=== PATIENT | male | born 1940 | race Caucasian/White ===

== ENCOUNTER 2017-08-20 13:22 | Emergency (ER) | payer MEDICARE, OTHER ==
[~2017-08-20] VITALS: Ht 167.6 cm; Wt 67.2 kg
[2017-08-20 14:38] LABS: URINE BILIRUBIN - DIPSTICK NEGATIVE (NEGATIVE); URINE BLOOD DIPSTICK LARGE (NEGATIVE); URINE COLOR YELLOW; URINE GLUCOSE - DIPSTICK NEGATIVE (NEGATIVE); URINE KETONE NEGATIVE (NEGATIVE); URINE LEUK ESTERASE MODERATE (Negative); URINE NITRITE - DIPSTICK POSITIVE (Negative); URINE PH 5.5 (4.5-8.0); URINE PROTEIN - DIPSTICK 100 mg/dL (NEG-TRACE); URINE UROBILINOGEN - DIPSTICK 0.2 E.U./dL (0.2)
[2017-08-20 14:46] LABS: URINE RBC TNTC RBC/hpf (0-5)
[2017-08-20 14:47] LABS: URINE SQUAMOUS EPITHELIAL CELL FEW EPI/hpf (0-FEW)
[2017-08-20 14:49] LABS: URINE BACTERIA MODERATE hpf
[2017-08-20 14:50] LABS: URINE CLARITY TURBID
[2017-08-20] MEDS ORDERED: KEFLEX500 M1 PO (15:01)
[2017-08-20 15:08] VITALS: BP 140/74
== END 2017-08-20 15:10 | disposition home or self-care (01) ==
LOC: ED 13:22
DX: N39.0 Urinary tract infection, site not specified (principal); I10 Essential (primary) hypertension; K58.9 Irritable bowel syndrome, unspecified; K21.9 Gastro-esophageal reflux disease without esophagitis; E78.00 Pure hypercholesterolemia, unspecified; N40.1 Benign prostatic hyperplasia with lower urinary tract symptoms; R33.8 Other retention of urine

== ENCOUNTER 2017-10-03 15:10 | Emergency (ER) | payer MEDICARE ==
[~2017-10-03] VITALS: Ht 167.6 cm; Wt 72.2 kg
[~2017-10-03 15:10] MED LIST: KEFLEX500 M1 PO
[2017-10-03 15:43] LABS: HEMATOCRIT 43.1 % (39.0-50.0); HEMOGLOBIN 14.6 g/dl (14.0-18.0); IMMATURE GRANULOCYTES 0.2 % (0.0-1.0); MEAN CELL VOLUME 88.9 fL CALC (80.0-100.0); MEAN CORPUSCULAR HGB 30.1 pG CALC (26.0-32.0); MEAN CORPUSCULAR HGB CONC 33.9 g/L CALC (32.0-36.0); NEUT# 7.45 thou/uL (1.82-7.42); RED BLOOD COUNT 4.85 mill/uL (4.70-6.10); RED CELL DISTRI WIDTH 12.4 % (11.5-15.5)
[2017-10-03 15:50] LABS: ALBUMIN 4.4 g/dL (3.2-5.0); ALKALINE PHOSPHATASE 91 u/l (38-126); ANION GAP 17 (6-22 (CALC)); BILIRUBIN, TOTAL 0.4 mg/dL (0.0-1.4); BUN 9 mg/dL (8-23); BUN/CREATININE RATIO 15 (12-20 (CALC)); CARBON DIOXIDE 27 mmol/l (22-30); CHLORIDE 101 mmol/l (95-108); CREATININE 0.6 mg/dL (0.7-1.3); GFR > 60 ML/MIN (>=60 (CALC)); GFR FOR AFR.AMER. > 60 ML/MIN (>=60 (CALC)); LIPASE 73 u/l (23-300); POTASSIUM 3.9 mmol/l (3.5-5.1); SGOT/AST 25 u/l (19-48); SGPT/ALT 43 u/l (11-66); SODIUM 141 mmol/l (137-146); TOTAL PROTEIN 7.8 g/dL (6.3-8.2)
[2017-10-03 16:34] LABS: URINE BILIRUBIN - DIPSTICK NEGATIVE (NEGATIVE); URINE BLOOD DIPSTICK NEGATIVE (NEGATIVE); URINE COLOR YELLOW; URINE GLUCOSE - DIPSTICK 100 mg/dL (NEGATIVE); URINE KETONE NEGATIVE (NEGATIVE); URINE LEUK ESTERASE NEGATIVE (NEGATIVE); URINE NITRITE - DIPSTICK NEGATIVE (Negative); URINE PH 7.5 (4.5-8.0); URINE PROTEIN - DIPSTICK NEGATIVE (NEG-TRACE); URINE UROBILINOGEN - DIPSTICK 0.2 E.U./dL (0.2)
[2017-10-03 16:35] LABS: URINE CLARITY CLEAR
[2017-10-03 17:22] VITALS: BP 135/70
== END 2017-10-03 17:36 | disposition home or self-care (01) ==
LOC: ED 15:10
PROVIDERS: Family Medicine
DX: R06.02 Shortness of breath (principal); I10 Essential (primary) hypertension; K58.9 Irritable bowel syndrome, unspecified; K21.9 Gastro-esophageal reflux disease without esophagitis; E78.00 Pure hypercholesterolemia, unspecified; N40.0 Benign prostatic hyperplasia without lower urinary tract symptoms; Z85.820 Personal history of malignant melanoma of skin; R00.0 Tachycardia, unspecified
CPT/HCPCS: Q9967

== ENCOUNTER 2017-11-17 09:39 | Day surgery (SDC) | payer MEDICARE ==
[~2017-11-17] VITALS: Ht 167.6 cm; Wt 63.5 kg
[~2017-11-17 09:39] MED LIST changes: +AMITIZA8 MCG PO; +AREDS 2 PO; +CARVEDILOL25 MG PO; +COLACE100 MG PO; +IRBESARTAN150 M1 PO; +LINZESS145 MCG PO; +MIRALAX3350 N1 PO; +MIRTAZAPINE15 M1 PO; +NIFEDICAL XL60 MG PO; +OMEPRAZOLE20 MG PO; +SG ASA LOW81 M1 PO; +ZETIA10 MG PO
[2017-11-17 13:39] VITALS: BP 112/64
[2017-11-22] MEDS ORDERED: REFRESH OU (10:36)
[2017-11-22] MEDS ORDERED: MELATONIN PO (10:38)
[2017-11-22] MEDS ORDERED: MIRALAX3350 N1 PO (10:41)
[2017-11-22] MEDS ORDERED: XANAX0.5 MG PO (10:43)
== END 2017-11-17 13:53 | disposition home or self-care (01) ==
LOC: ENDO 09:39 → ORM 14:30
PROVIDERS: ATTEND Internal Medicine Gastroenterology
PROC: 0DB48ZX Excision of Esophagogastric Junction, Via Natural or Artificial Opening Endoscopic, Diagnostic (ICD-10-PCS; principal; 2017-11-17)
PROC: 0DB78ZX Excision of Stomach, Pylorus, Via Natural or Artificial Opening Endoscopic, Diagnostic (ICD-10-PCS; 2017-11-17)
PROC: 0D758ZZ Dilation of Esophagus, Via Natural or Artificial Opening Endoscopic (ICD-10-PCS; 2017-11-17)
DX: K21.9 Gastro-esophageal reflux disease without esophagitis (principal); K22.2 Esophageal obstruction; K29.50 Unspecified chronic gastritis without bleeding; K59.00 Constipation, unspecified; F32.9 Major depressive disorder, single episode, unspecified; I10 Essential (primary) hypertension; Z86.010 Personal history of colon polyps

== ENCOUNTER 2017-12-31 17:10 | Emergency (ER) | payer MEDICARE ==
[~2017-12-31] VITALS: Ht 167.6 cm; Wt 65.0 kg
[~2017-12-31 17:10] MED LIST changes: +BENADRY1 PO; +MAGNESIUM 250 M1 TAB PO; +MELATONIN PO; +MELATONIN10 M1 PO; +REFRESH OU; +SUPER VITAMIN B COMP PO; +XANAX0.5 MG PO; +ZOLOFT50 MG PO
[2017-12-31 18:08] LABS: HEMATOCRIT 45.1 % (39.0-50.0); HEMOGLOBIN 15.1 g/dl (14.0-18.0); IMMATURE GRANULOCYTES 0.2 % (0.0-5.0); MEAN CELL VOLUME 89.3 fL CALC (80.0-100.0); MEAN CORPUSCULAR HGB 29.9 pG CALC (26.0-32.0); MEAN CORPUSCULAR HGB CONC 33.5 g/L CALC (32.0-36.0); NEUT# 5.28 thou/uL (1.82-7.42); RED BLOOD COUNT 5.05 mill/uL (4.70-6.10); RED CELL DISTRI WIDTH 12.9 % (11.5-15.5)
[2017-12-31 18:33] LABS: ALBUMIN 4.2 g/dL (3.2-5.0); ALKALINE PHOSPHATASE 84 u/l (38-126); ANION GAP 15 (6-22 (CALC)); BILIRUBIN, TOTAL 0.3 mg/dL (0.0-1.4); BUN 11 mg/dL (8-23); BUN/CREATININE RATIO 18 (12-20 (CALC)); CARBON DIOXIDE 27 mmol/l (22-30); CHLORIDE 104 mmol/l (95-108); CREATININE 0.6 mg/dL (0.7-1.3); GFR > 60 ML/MIN (>=60 (CALC)); GFR FOR AFR.AMER. > 60 ML/MIN (>=60 (CALC)); POTASSIUM 3.6 mmol/l (3.5-5.1); SGOT/AST 28 u/l (19-48); SODIUM 142 mmol/l (137-146)
[2017-12-31 19:36] LABS: URINE BILIRUBIN - DIPSTICK NEGATIVE (NEGATIVE); URINE BLOOD DIPSTICK NEGATIVE (NEGATIVE); URINE CLARITY CLEAR; URINE COLOR YELLOW; URINE GLUCOSE - DIPSTICK NEGATIVE (NEGATIVE); URINE KETONE NEGATIVE (NEGATIVE); URINE LEUK ESTERASE NEGATIVE (NEGATIVE); URINE NITRITE - DIPSTICK NEGATIVE (Negative); URINE PROTEIN - DIPSTICK NEGATIVE (NEG-TRACE); URINE UROBILINOGEN - DIPSTICK 0.2 E.U./dL (0.2)
[2017-12-31 19:49] VITALS: BP 138/71
== END 2017-12-31 19:57 | disposition home or self-care (01) ==
LOC: ED 17:10
PROVIDERS: Emergency Medicine
DX: K59.00 Constipation, unspecified (principal); I10 Essential (primary) hypertension; R82.90 Unspecified abnormal findings in urine

== ENCOUNTER 2018-01-31 11:59 | Emergency (ER) | payer MEDICARE ==
[~2018-01-31] VITALS: Ht 167.6 cm; Wt 65.0 kg
[~2018-01-31 11:59] MED LIST changes: +ZOFRAN4 M1 PO
[2018-01-31 12:34] LABS: HEMOGLOBIN 15.2 g/dl (14.0-18.0); IMMATURE GRANULOCYTES 0.2 % (0.0-5.0); MEAN CELL VOLUME 89.8 fL CALC (80.0-100.0); MEAN CORPUSCULAR HGB 30.3 pG CALC (26.0-32.0); MEAN CORPUSCULAR HGB CONC 33.8 g/L CALC (32.0-36.0); NEUT# 6.36 thou/uL (1.82-7.42); RED BLOOD COUNT 5.01 mill/uL (4.70-6.10); RED CELL DISTRI WIDTH 12.7 % (11.5-15.5)
[2018-01-31 12:47] LABS: ALBUMIN 4.3 g/dL (3.2-5.0); ALKALINE PHOSPHATASE 76 u/l (38-126); ANION GAP 14 (6-22 (CALC)); BILIRUBIN, TOTAL 0.4 mg/dL (0.0-1.4); BUN 13 mg/dL (8-23); BUN/CREATININE RATIO 20 (12-20 (CALC)); CARBON DIOXIDE 27 mmol/l (22-30); CHLORIDE 105 mmol/l (95-108); CREATININE 0.6 mg/dL (0.7-1.3); GFR > 60 ML/MIN (>=60 (CALC)); GFR FOR AFR.AMER. > 60 ML/MIN (>=60 (CALC)); POTASSIUM 4.1 mmol/l (3.5-5.1); SGOT/AST 35 u/l (19-48); SODIUM 141 mmol/l (137-146); TOTAL PROTEIN 7.4 g/dL (6.3-8.2)
[2018-01-31 15:28] VITALS: BP 148/70
[2018-02-05] MEDS ORDERED: LINZESS72 MCG PO (12:28)
== END 2018-01-31 15:38 | disposition home or self-care (01) ==
LOC: ED 11:59
PROVIDERS: Emergency Medicine
DX: F41.9 Anxiety disorder, unspecified (principal); R07.89 Other chest pain; K59.00 Constipation, unspecified; R11.0 Nausea; I10 Essential (primary) hypertension; E78.00 Pure hypercholesterolemia, unspecified; K21.9 Gastro-esophageal reflux disease without esophagitis; Y92.238 Other place in hospital as the place of occurrence of the external cause

== ENCOUNTER 2018-03-15 11:44 | Observation (INO) | payer MEDICARE ==
[~2018-03-15] VITALS: Ht 167.6 cm; Wt 70.0 kg
[~2018-03-15 11:44] MED LIST changes: +LINZESS72 MCG PO
[2018-03-15 13:42] LABS: HEMATOCRIT 43.7 % (39.0-50.0); HEMOGLOBIN 15.2 g/dl (14.0-18.0); IMMATURE GRANULOCYTES 0.2 % (0.0-5.0); MEAN CELL VOLUME 88.1 fL CALC (80.0-100.0); MEAN CORPUSCULAR HGB 30.6 pG CALC (26.0-32.0); MEAN CORPUSCULAR HGB CONC 34.8 g/L CALC (32.0-36.0); NEUT# 6.39 thou/uL (1.82-7.42); RED BLOOD COUNT 4.96 mill/uL (4.70-6.10); RED CELL DISTRI WIDTH 12.4 % (11.5-15.5)
[2018-03-15 13:55] LABS: ANION GAP 14 (6-22 (CALC)); BUN 13 mg/dL (8-23); BUN/CREATININE RATIO 23 (12-20 (CALC)); CARBON DIOXIDE 25 mmol/l (22-30); CHLORIDE 105 mmol/l (95-108); CREATININE 0.6 mg/dL (0.7-1.3); GFR > 60 ML/MIN (>=60 (CALC)); GFR FOR AFR.AMER. > 60 ML/MIN (>=60 (CALC)); POTASSIUM 3.8 mmol/l (3.5-5.1); SODIUM 141 mmol/l (137-146)
[2018-03-15 17:54] VITALS: BP 173/85
[2018-03-15 19:00] VITALS: BP 160/82
[2018-03-15 19:05] VITALS: BP 151/53
[2018-03-15 20:00] VITALS: BP 149/84
[2018-03-15 21:42] LABS: URINE BILIRUBIN - DIPSTICK NEGATIVE (NEGATIVE); URINE BLOOD DIPSTICK NEGATIVE (NEGATIVE); URINE COLOR YELLOW; URINE GLUCOSE - DIPSTICK NEGATIVE (NEGATIVE); URINE KETONE 40 mg/dL (NEGATIVE); URINE LEUK ESTERASE NEGATIVE (NEGATIVE); URINE NITRITE - DIPSTICK NEGATIVE (Negative); URINE PH 7.5 (4.5-8.0); URINE PROTEIN - DIPSTICK TRACE mg/dL (NEG-TRACE); URINE UROBILINOGEN - DIPSTICK 0.2 E.U./dL (0.2)
[2018-03-15 23:56] VITALS: BP 166/83
[2018-03-16 04:38] VITALS: BP 132/71
[2018-03-16 05:46] LABS: HEMATOCRIT 41.6 % (39.0-50.0); HEMOGLOBIN 14.3 g/dl (14.0-18.0); IMMATURE GRANULOCYTES 0.2 % (0.0-5.0); MEAN CELL VOLUME 90.2 fL CALC (80.0-100.0); MEAN CORPUSCULAR HGB CONC 34.4 g/L CALC (32.0-36.0); NEUT# 4.13 thou/uL (1.82-7.42); RED BLOOD COUNT 4.61 mill/uL (4.70-6.10); RED CELL DISTRI WIDTH 12.5 % (11.5-15.5)
[2018-03-16 05:55] LABS: ALBUMIN 3.8 g/dL (3.2-5.0); ALKALINE PHOSPHATASE 66 u/l (38-126); ANION GAP 14 (6-22 (CALC)); BILIRUBIN, TOTAL 0.8 mg/dL (0.0-1.4); BUN 18 mg/dL (8-23); BUN/CREATININE RATIO 26 (12-20 (CALC)); CARBON DIOXIDE 26 mmol/l (22-30); CHLORIDE 105 mmol/l (95-108); CREATININE 0.7 mg/dL (0.7-1.3); GFR > 60 ML/MIN (>=60 (CALC)); GFR FOR AFR.AMER. > 60 ML/MIN (>=60 (CALC)); MAGNESIUM 2.3 mg/dL (1.6-2.3); POTASSIUM 3.9 mmol/l (3.5-5.1); SGOT/AST 25 u/l (19-48); SODIUM 142 mmol/l (137-146); TOTAL PROTEIN 6.3 g/dL (6.3-8.2)
[2018-03-16 08:14] VITALS: BP 128/51
[2018-03-16 11:22] VITALS: BP 136/74
[2018-03-16] MEDS ORDERED: ZOFRAN4 MG PO (14:21)
== END 2018-03-16 15:22 | disposition home or self-care (01) ==
LOC: ED 11:44 → ED-I 14:57 → ED 15:04 → MS2 15:05
PROVIDERS: Family Medicine; ADMIT Internal Medicine Nephrology; ATTEND Internal Medicine Nephrology
DX: F41.0 Panic disorder [episodic paroxysmal anxiety] (principal); T46.5X6A Underdosing of other antihypertensive drugs, initial encounter; I10 Essential (primary) hypertension; K21.9 Gastro-esophageal reflux disease without esophagitis; K58.9 Irritable bowel syndrome, unspecified; E78.5 Hyperlipidemia, unspecified; N40.0 Benign prostatic hyperplasia without lower urinary tract symptoms; Z91.128 Patient's intentional underdosing of medication regimen for other reason; Z85.820 Personal history of malignant melanoma of skin; R07.9 Chest pain, unspecified
CPT/HCPCS: J1650

== ENCOUNTER 2018-05-14 15:47 | Emergency (ER) | payer MEDICARE ==
[~2018-05-14] VITALS: Ht 167.6 cm; Wt 60.0 kg
[~2018-05-14 15:47] MED LIST changes: +ZOFRAN4 MG PO
[2018-05-14 16:50] LABS: HEMATOCRIT 41.5 % (39.0-50.0); IMMATURE GRANULOCYTES 0.1 % (0.0-5.0); MEAN CELL VOLUME 92.4 fL CALC (80.0-100.0); MEAN CORPUSCULAR HGB 31.2 pG CALC (26.0-32.0); MEAN CORPUSCULAR HGB CONC 33.7 g/L CALC (32.0-36.0); NEUT# 4.89 thou/uL (1.82-7.42); RED BLOOD COUNT 4.49 mill/uL (4.70-6.10); RED CELL DISTRI WIDTH 12.9 % (11.5-15.5)
[2018-05-14 16:52] LABS: GFR > 60 ML/MIN (>=60 (CALC)); GFR FOR AFR.AMER. > 60 ML/MIN (>=60 (CALC))
[2018-05-14 17:04] LABS: ANION GAP 14 (6-22 (CALC)); BUN 14 mg/dL (8-23); BUN/CREATININE RATIO 24 (12-20 (CALC)); CARBON DIOXIDE 26 mmol/l (22-30); CHLORIDE 105 mmol/l (95-108); CREATININE 0.6 mg/dL (0.7-1.3); GFR > 60 ML/MIN (>=60 (CALC)); GFR FOR AFR.AMER. > 60 ML/MIN (>=60 (CALC)); POTASSIUM 3.5 mmol/l (3.5-5.1); SODIUM 142 mmol/l (137-146)
[2018-05-14 18:52] VITALS: BP 126/60
== END 2018-05-14 18:52 | disposition home or self-care (01) ==
LOC: ED 15:47
PROVIDERS: Family Medicine
DX: R00.2 Palpitations (principal); I10 Essential (primary) hypertension; K58.9 Irritable bowel syndrome, unspecified; E78.00 Pure hypercholesterolemia, unspecified; N40.0 Benign prostatic hyperplasia without lower urinary tract symptoms; K21.9 Gastro-esophageal reflux disease without esophagitis; F41.9 Anxiety disorder, unspecified; R06.02 Shortness of breath
CPT/HCPCS: Q9967

== ENCOUNTER 2018-06-07 11:25 | Emergency (ER) | payer MEDICARE ==
[~2018-06-07] VITALS: Ht 167.6 cm; Wt 65.0 kg
[2018-06-07 12:15] LABS: HEMATOCRIT 44.6 % (39.0-50.0); HEMOGLOBIN 15.2 g/dl (14.0-18.0); IMMATURE GRANULOCYTES 0.1 % (0.0-5.0); MEAN CELL VOLUME 89.9 fL CALC (80.0-100.0); MEAN CORPUSCULAR HGB 30.6 pG CALC (26.0-32.0); MEAN CORPUSCULAR HGB CONC 34.1 g/L CALC (32.0-36.0); NEUT# 6.41 thou/uL (1.82-7.42); RED BLOOD COUNT 4.96 mill/uL (4.70-6.10); RED CELL DISTRI WIDTH 12.4 % (11.5-15.5)
[2018-06-07 12:29] LABS: ALKALINE PHOSPHATASE 77 u/l (38-126); ANION GAP 15 (6-22 (CALC)); BILIRUBIN, TOTAL 0.6 mg/dL (0.0-1.4); BUN 16 mg/dL (8-23); BUN/CREATININE RATIO 24 (12-20 (CALC)); CARBON DIOXIDE 25 mmol/l (22-30); CHLORIDE 103 mmol/l (95-108); CREATININE 0.7 mg/dL (0.7-1.3); GFR > 60 ML/MIN (>=60 (CALC)); GFR FOR AFR.AMER. > 60 ML/MIN (>=60 (CALC)); LIPASE 69 u/l (23-300); POTASSIUM 3.7 mmol/l (3.5-5.1); SGOT/AST 26 u/l (19-48); SODIUM 140 mmol/l (137-146); TOTAL PROTEIN 7.2 g/dL (6.3-8.2)
[2018-06-07 12:32] LABS: ALBUMIN 4.6 g/dL (3.2-5.0)
[2018-06-07 15:49] LABS: URINE BILIRUBIN - DIPSTICK NEGATIVE (NEGATIVE); URINE BLOOD DIPSTICK NEGATIVE (NEGATIVE); URINE COLOR YELLOW; URINE GLUCOSE - DIPSTICK NEGATIVE (NEGATIVE); URINE KETONE 15 mg/dL (NEGATIVE); URINE LEUK ESTERASE NEGATIVE (NEGATIVE); URINE NITRITE - DIPSTICK NEGATIVE (Negative); URINE PROTEIN - DIPSTICK NEGATIVE (NEG-TRACE); URINE UROBILINOGEN - DIPSTICK 0.2 E.U./dL (0.2)
[2018-06-07 17:10] VITALS: BP 155/73
== END 2018-06-07 17:16 | disposition home or self-care (01) ==
LOC: ED 11:25
PROVIDERS: Family Medicine
DX: R10.13 Epigastric pain (principal); R10.816 Epigastric abdominal tenderness; R05 Cough; I10 Essential (primary) hypertension; K58.9 Irritable bowel syndrome, unspecified; K21.9 Gastro-esophageal reflux disease without esophagitis; N40.0 Benign prostatic hyperplasia without lower urinary tract symptoms

== ENCOUNTER 2018-06-22 14:54 | Emergency (ER) | payer MEDICARE ==
[~2018-06-22] VITALS: Ht 167.6 cm; Wt 58.6 kg
[2018-06-22 15:55] LABS: HEMATOCRIT 43.6 % (39.0-50.0); HEMOGLOBIN 14.8 g/dl (14.0-18.0); IMMATURE GRANULOCYTES 0.2 % (0.0-5.0); MEAN CELL VOLUME 89.2 fL CALC (80.0-100.0); MEAN CORPUSCULAR HGB 30.3 pG CALC (26.0-32.0); MEAN CORPUSCULAR HGB CONC 33.9 g/L CALC (32.0-36.0); RED BLOOD COUNT 4.89 mill/uL (4.70-6.10); RED CELL DISTRI WIDTH 12.4 % (11.5-15.5)
[2018-06-22 16:16] LABS: ALBUMIN 4.2 g/dL (3.2-5.0); ALKALINE PHOSPHATASE 68 u/l (38-126); ANION GAP 14 (6-22 (CALC)); BILIRUBIN, TOTAL 0.5 mg/dL (0.0-1.4); BUN 24 mg/dL (8-23); BUN/CREATININE RATIO 35 (12-20 (CALC)); CARBON DIOXIDE 27 mmol/l (22-30); CHLORIDE 103 mmol/l (95-108); CREATININE 0.7 mg/dL (0.7-1.3); GFR > 60 ML/MIN (>=60 (CALC)); GFR FOR AFR.AMER. > 60 ML/MIN (>=60 (CALC)); POTASSIUM 3.4 mmol/l (3.5-5.1); SGOT/AST 22 u/l (19-48); SODIUM 140 mmol/l (137-146); TOTAL PROTEIN 6.8 g/dL (6.3-8.2)
[2018-06-22 17:10] LABS: TSH, 3RD GENERATION 0.96 uIU/mL (0.47 - 4.68)
[2018-06-22 19:01] VITALS: BP 137/66
== END 2018-06-22 19:05 | disposition home or self-care (01) ==
LOC: ED 14:54
PROVIDERS: Emergency Medicine
DX: R34 Anuria and oliguria (principal); I10 Essential (primary) hypertension

== ENCOUNTER 2018-08-21 09:22 | Emergency (ER) | payer MEDICARE ==
[~2018-08-21] VITALS: Ht 167.6 cm; Wt 54.0 kg
[2018-08-21 10:36] LABS: HEMATOCRIT 45.8 % (39.0-50.0); HEMOGLOBIN 15.1 g/dl (14.0-18.0); IMMATURE GRANULOCYTES 0.3 % (0.0-5.0); MEAN CELL VOLUME 90.3 fL CALC (80.0-100.0); MEAN CORPUSCULAR HGB 29.8 pG CALC (26.0-32.0); NEUT# 7.5 thou/uL (1.82-7.42); RED BLOOD COUNT 5.07 mill/uL (4.70-6.10); RED CELL DISTRI WIDTH 12.4 % (11.5-15.5)
[2018-08-21 10:50] LABS: URINE BILIRUBIN - DIPSTICK NEGATIVE (NEGATIVE); URINE BLOOD DIPSTICK NEGATIVE (NEGATIVE); URINE COLOR YELLOW; URINE GLUCOSE - DIPSTICK NEGATIVE (NEGATIVE); URINE KETONE NEGATIVE (NEGATIVE); URINE LEUK ESTERASE NEGATIVE (NEGATIVE); URINE NITRITE - DIPSTICK NEGATIVE (Negative); URINE PROTEIN - DIPSTICK NEGATIVE (NEG-TRACE); URINE UROBILINOGEN - DIPSTICK 0.2 E.U./dL (0.2)
[2018-08-21 10:52] LABS: ALBUMIN 4.3 g/dL (3.2-5.0); ALKALINE PHOSPHATASE 77 u/l (38-126); ANION GAP 14 (6-22 (CALC)); BILIRUBIN, TOTAL 0.5 mg/dL (0.0-1.4); BUN 9 mg/dL (8-23); BUN/CREATININE RATIO 15 (12-20 (CALC)); CARBON DIOXIDE 28 mmol/l (22-30); CHLORIDE 104 mmol/l (95-108); CREATININE 0.6 mg/dL (0.7-1.3); GFR > 60 ML/MIN (>=60 (CALC)); GFR FOR AFR.AMER. > 60 ML/MIN (>=60 (CALC)); LIPASE 71 u/l (23-300); POTASSIUM 4.4 mmol/l (3.5-5.1); SGOT/AST 28 u/l (19-48); SODIUM 142 mmol/l (137-146); TOTAL PROTEIN 6.8 g/dL (6.3-8.2)
[2018-08-21] MEDS ORDERED: DULCOLAX10 MG RE (12:37)
[2018-08-21 13:35] VITALS: BP 173/95
== END 2018-08-21 13:41 | disposition home or self-care (01) ==
LOC: ED 09:22
PROVIDERS: Emergency Medicine
DX: K59.00 Constipation, unspecified (principal); K58.9 Irritable bowel syndrome, unspecified; I10 Essential (primary) hypertension; R11.2 Nausea with vomiting, unspecified; R82.90 Unspecified abnormal findings in urine
CPT/HCPCS: Q9967

== ENCOUNTER 2018-12-24 11:17 | Emergency (ER) | payer MEDICARE ==
[~2018-12-24] VITALS: Ht 167.6 cm; Wt 52.3 kg
[~2018-12-24 11:17] MED LIST changes: +DULCOLAX10 MG RE
[2018-12-24] MEDS ORDERED: LINZESS290 MCG (11:34)
[2018-12-24] MEDS ORDERED: ASPIRIN EC LOW81 MG PO (11:35)
[2018-12-24] MEDS ORDERED: OMEPRAZOLE10 MG PO (11:35)
[2018-12-24] MEDS ORDERED: IBERSARTAN PO (11:36)
[2018-12-24] MEDS ORDERED: CARVEDILOL25 MG PO (11:36)
[2018-12-24] MEDS ORDERED: SUCRALFATE1 GM PO (11:37)
[2018-12-24] MEDS ORDERED: ALPRAZOLAM1 MG PO (11:38)
[2018-12-24] MEDS ORDERED: ZETIA10 MG PO (11:38)
[2018-12-24] MEDS ORDERED: MIRTAZAPINE15 MG PO (11:39)
[2018-12-24] MEDS ORDERED: CYMBALTA60 MG PO (11:39)
[2018-12-24] MEDS ORDERED: STOOL SOFTE1 PO (11:39)
[2018-12-24] MEDS ORDERED: MILK OF MAG30 ML/UDC PO (11:40)
[2018-12-24] MEDS ORDERED: NIFEDICAL XL60 MG PO (11:40)
[2018-12-24 11:56] LABS: HEMOGLOBIN 13.9 g/dl (14.0-18.0); IMMATURE GRANULOCYTES 0.4 % (0.0-5.0); MEAN CELL VOLUME 88.8 fL CALC (80.0-100.0); MEAN CORPUSCULAR HGB 29.4 pG CALC (26.0-32.0); MEAN CORPUSCULAR HGB CONC 33.1 g/L CALC (32.0-36.0); NEUT# 3.62 thou/uL (1.82-7.42); RED BLOOD COUNT 4.73 mill/uL (4.70-6.10); RED CELL DISTRI WIDTH 12.5 % (11.5-15.5)
[2018-12-24 12:55] LABS: ALKALINE PHOSPHATASE 80 u/l (38-126); ANION GAP 13 (6-22 (CALC)); BILIRUBIN, TOTAL 0.4 mg/dL (0.0-1.4); BUN 15 mg/dL (8-23); BUN/CREATININE RATIO 25 (12-20 (CALC)); CARBON DIOXIDE 28 mmol/l (22-30); CHLORIDE 105 mmol/l (95-108); CREATININE 0.6 mg/dL (0.7-1.3); GFR > 60 ML/MIN (>=60 (CALC)); GFR FOR AFR.AMER. > 60 ML/MIN (>=60 (CALC)); POTASSIUM 3.8 mmol/l (3.5-5.1); SGOT/AST 25 u/l (19-48); SODIUM 142 mmol/l (137-146); TOTAL PROTEIN 6.7 g/dL (6.3-8.2)
[2018-12-24 13:07] LABS: URINE BILIRUBIN - DIPSTICK NEGATIVE (NEGATIVE); URINE BLOOD DIPSTICK NEGATIVE (NEGATIVE); URINE COLOR YELLOW; URINE GLUCOSE - DIPSTICK NEGATIVE (NEGATIVE); URINE KETONE NEGATIVE (NEGATIVE); URINE LEUK ESTERASE NEGATIVE (NEGATIVE); URINE NITRITE - DIPSTICK NEGATIVE (Negative); URINE PROTEIN - DIPSTICK NEGATIVE (NEG-TRACE); URINE SPECIFIC GRAVITY 1.015; URINE UROBILINOGEN - DIPSTICK 0.2 E.U./dL (0.2)
[2018-12-24 14:20] VITALS: BP 159/85
== END 2018-12-24 14:20 | disposition home or self-care (01) ==
LOC: ED 11:17
PROVIDERS: Family Medicine
DX: K62.89 Other specified diseases of anus and rectum (principal); R10.84 Generalized abdominal pain; I10 Essential (primary) hypertension

== ENCOUNTER 2020-06-29 | Inpatient (IN) | payer MEDICARE ==
[2020-06-29] VITALS (12 sets, daily range): BP systolic 139–180; BP diastolic 62–102
[~2020-06-29] MED LIST changes: +ALPRAZOLAM1 MG PO; +ASPIRIN EC LOW81 MG PO; +CYMBALTA60 MG PO; +IBERSARTAN PO; +LINZESS290 MCG; +MILK OF MAG30 ML/UDC PO; +MIRTAZAPINE15 MG PO; +OMEPRAZOLE10 MG PO; +STOOL SOFTE1 PO; +SUCRALFATE1 GM PO
--- NOTE | 2020-06-29 05:40 | NUR ---
PT TO ROOM 13 FOR TRIAGE AT BEDSIDE....VIA W/C.
--- NOTE | 2020-06-29 06:09 | NUR ---
PT RESTING ON STRECTHER, SPOUSE IS TALKING ANXIOUSLY ABOUT THEIR HOME AND FORMALDEHYDE POISONING AND THAT THEY HAVE HAD TO MOVE OUT AND HIRE A MAKE UP MAN TO [place] SOMEONE BECAUSE THEIR INSURANCE SAYS THAT ISN'T COVERED, ETC.. ATTEMPTS TO REDIRECT SPOUSE TO SITUATION AT HAND LASTS FOR SHORT PERIODS OF TIME, PT RESTING ON STRETCHER WITH NO S/S OF DISTRESS, SAT 99-100% ON ROOM AIR, LUNGS CLEAR DIMINSHED, SPOUSE STATES HE COULD BARELY CATCH HIS BREATH AT HOME LIKE HE HAD PNEUMONIA OR SOMETHING, ALSO STATES THAT HE HAD HIS COVID VACCINE ON MONDAY. NO S/S OF DISTRESS NOTED NO COUGH NOTED. CALL CAMERON WITHIN REACH, WILL CONTINUE TO MONITOR.
[2020-06-29 06:19] LABS: HEMATOCRIT 39.3 % (39.0-50.0); HEMOGLOBIN 12.7 g/dl (14.0-18.0); IMMATURE GRANULOCYTES 0.3 % (0.0-5.0); MEAN CORPUSCULAR HGB 30.8 pG CALC (26.0-32.0); MEAN CORPUSCULAR HGB CONC 32.3 g/dL CAL (32.0-36.0); NEUT# 3.62 thou/uL (1.82-7.42); RED BLOOD COUNT 4.13 mill/uL (4.70-6.10); RED CELL DISTRI WIDTH 11.9 % (11.5-15.5)
[2020-06-29 06:20] LABS: MEAN CELL VOLUME 95.2 fL CALC (80.0-100.0)
[2020-06-29 06:33] LABS: ALBUMIN 3.7 g/dL (3.2-5.0); ALKALINE PHOSPHATASE 74 u/l (38-126); ANION GAP 10 (6-22 (CALC)); BILIRUBIN, TOTAL 0.6 mg/dL (0.0-1.4); BUN 14 mg/dL (8-23); BUN/CREATININE RATIO 17 (12-20 (CALC)); CARBON DIOXIDE 30 mmol/l (22-30); CHLORIDE 104 mmol/l (95-108); CREATININE 0.9 mg/dL (0.7-1.3); GFR > 60 ML/MIN (>=60 (CALC)); GFR FOR AFR.AMER. > 60 ML/MIN (>=60 (CALC)); POTASSIUM 3.7 mmol/l (3.5-5.1); SGOT/AST 19 u/l (19-48); SODIUM 141 mmol/l (137-146); TOTAL PROTEIN 6.6 g/dL (6.3-8.2)
--- NOTE | 2020-06-29 06:36 | NUR ---
PT AWARE OF NEED FOR URINE SPECIMEN, PO FLUIDS PROVIDED AND URINAL WITHIN REACH
[2020-06-29] MEDS ORDERED: OLANZAPINE10 MG PO (06:47)
[2020-06-29] MEDS ORDERED: BUPROPION150 M4 PO (06:56)
[2020-06-29] MEDS ORDERED: IRBESARTAN150 M1 PO (07:01)
[2020-06-29] MEDS ORDERED: VERAPAMIL HCL240 M2 PO (07:03)
[2020-06-29] MEDS ORDERED: ATIVAN1 MG PO (07:03)
[2020-06-29] MEDS ORDERED: TAMSULOSIN HCL0.4 MG PO (07:04)
--- NOTE | 2020-06-29 07:05 | NUR ---
RECIEVED REPORT FROM ONEAL
--- NOTE | 2020-06-29 08:10 | NUR ---
PT RECONNECTED TO [employer], DENIES ANY NEEDS AT THIS TIME
[2020-06-29 08:35] LABS: ACT PARTIAL THROMBO TIME 23.6 SECONDS (20.0-32.5); PROTHROMBIN TIME 10.1 SECONDS (9.0-12.5)
--- NOTE | 2020-06-29 08:52 | NUR ---
STARTED HEPARIN INFUSING, EDU ON TREATMENT AND THE REASONING WHY GIVEN. PT REPOSITIONED IN BED AND URINAL, CALL LIGHT WITHIN REACH. AT BEDSIDE HAD QUESTIONS AND ALL ANSWERED. WILL CONTINUE TO MONITOR
--- NOTE | 2020-06-29 10:06 | NUR ---
GAVE REPORT TO MARYELLEN, SHE REQUESTED 10 MIN OF WAIT UNTIL PT TAKEN UPSTAIRS. REQUEST GRANTED. PT CONTINUES TO BE COMFORTABLE, STABLE AND HEPARIN DRIP INFUSING INTO PATENT IV.
--- NOTE | 2020-06-29 10:21 | NUR ---
male pt received to ICU bed 4 via bed accompanied by Felicity Bustos RN in stable condition; pt able to slide self over in bed; admission assessment completed at this time; pt alert and oriented; admits to headache rating 3/10; will medicate; no n/v noted; resp even and unlabored; lungs clear; skin color wnl; ra; hr reg; strong pulses; no edema noted; sr on monitor; abd soft with bs present; no bm for 2 and 1/2 days per pt; pt states this is his normal; pt admits to taking colace and miralax at home; pt admits to burning and pain with urine; pt admits to inability to urinate when in ER; urinal placed at bedside; #20 to rac patent with heparin gtt infusing at 1000 units/hr; no redness or edema noted at site; plan of care/meds explained; call light within reach; will continue to monitor
--- NOTE | 2020-06-29 10:25 | NUR ---
PT TRANSPORTED TO ICU STABLE AND IN NO DISTRESS. CARE ASSUMED TO MARYELLEN. Admission Note Report Given to: MARYELLEN Transported by: Wheelchair X Stretcher Transported with: X Nurse Transporter X Patent IV O2 X Stone Planer Location: X ICU MS2
--- NOTE | 2020-06-29 12:00 | NUR ---
pt awake in bed; soft meal provided; pureed offered and declined; iv intact and patent; heparin gtt at 1000 units/hr; pt offers no complaints; bp elevted; LIANA Nash notified; call light within reach; will continue to monitor
--- NOTE | 2020-06-29 12:05 | NUR ---
Patient is screened for intervention and no needs areidentified at this time
[2020-06-29 12:22] LABS: URINE BILIRUBIN - DIPSTICK NEGATIVE (NEGATIVE); URINE BLOOD DIPSTICK NEGATIVE (NEGATIVE); URINE COLOR YELLOW; URINE GLUCOSE - DIPSTICK NEGATIVE (NEGATIVE); URINE KETONE NEGATIVE (NEGATIVE); URINE LEUK ESTERASE NEGATIVE (NEGATIVE); URINE PROTEIN - DIPSTICK NEGATIVE (NEG-TRACE); URINE SPECIFIC GRAVITY <=1.005; URINE UROBILINOGEN - DIPSTICK 0.2 E.U./dL (0.2)
[2020-06-29 12:24] LABS: URINE NITRITE - DIPSTICK NEGATIVE (Negative)
--- NOTE | 2020-06-29 12:52 | NUR ---
pt denies taking any home meds today; Anna Nash APRN informed of no meds/ elevated bp/ and no bm the 2.5 days; med rec/ orders to be placed
--- NOTE | 2020-06-29 13:42 | NUR ---
#20 LFA INITIATED BY THIS DIRECTOR OF CLINICAL SERVICES X1 ATTEMPT. HEALTHY AND PATENT. PT TOLERATED WELL.
--- NOTE | 2020-06-29 14:15 | NUR ---
pt awake in bed; no relief from tylenol; DIVISION CHIEF will be notified; sr on monitor; iv intact and patent; heparin gtt continues; call light within reach; will continue to monitor
--- NOTE | 2020-06-29 15:16 | NUR ---
Pt screened by ST on 06/29/20. GEODETIC SURVEYOR TECHNOLOGIST recommends evluation based on PMH and current symptoms if medical agrees.
--- NOTE | 2020-06-29 15:38 | NUR ---
Anna Nash APRN present at bedside to assess pt and discuss plan of care
--- NOTE | 2020-06-29 15:52 | NUR ---
D KATIE GAINES NOTIFIED OF CRITICAL PTT RESULT OF 122.5.
--- NOTE | 2020-06-29 15:54 | NUR ---
heparin gtt placed on hold, ptt 122.5
--- NOTE | 2020-06-29 16:00 | NUR ---
pt awake in bed; no apparent distress noted; pt continues with complaints of headache; iv intact and patent; heparin gtt resumed at 800 units/hr; sr on monitor; urinal at bedside; call light within reach; will continue to monitor
--- NOTE | 2020-06-29 17:00 | NUR ---
heparin gtt resumed at 800 units/hr to rac;
--- NOTE | 2020-06-29 17:18 | NUR ---
meal provided; pt unable to eat d/t lack of dentures/teeth; diet will be changed to puree
--- NOTE | 2020-06-29 18:04 | NUR ---
pt awake in bed; no apparent distress noted; iv intact and patent; heparin gtt at 800 units/hr; sr on monitor; call light within reach
--- NOTE | 2020-06-29 19:00 | NUR ---
REPORT RECEIVED FROM Sánchez TORRES RN, CARE OF PT ASSUMED AT THIS TIME. PT RESTING IN BED, APPEARS COMFORTABLE, DENIES ANY DISTRESS OR DISCOMFORT. DENIES NEEDS AT THIS TIME. CALL CAMERON WITHIN REACH, AGREES TO CALL PRN.
--- NOTE | 2020-06-29 19:30 | NUR ---
URINAL PROVIDED PER PT'S REQUEST.
--- NOTE | 2020-06-29 19:40 | NUR ---
PT UNABLE TO VOID AT THIS TIME. DENIES RETENTION, DOES REPORT BURNING DISCOMFORT WITH URINATION. Andrea GOLD APRN MADE AWARE. ORDER TO INSERT YI PRN FOR URINARY RETENTION AND DISCOMFORT.
--- NOTE | 2020-06-29 20:00 | NUR ---
PHYSICAL ASSESMENT COMPLETED. SEE SHIFT ASSESMENT. HEPARIN INFUSING AT 800UNIT/H TO R-AC 20G, SITE PATENT. NS INFUSING AT 100ML/H TO L-FA 20G, SITE PATENT. PLAN OF CARE REVIEWED WITH PT, PT VERBALIZES UNDERSTANDING AND DENIES QUESTIONS. PT ABLE TO MAKE NEEDS KNOWN, AND AGREES TO USE CALL CAMERON PRN. DENIES NEEDS AT THIS TIME. CALL CAMERON WTHIN REACH. BED LOCKED IN LOW POSITION WITH BEDRAILS UP X2.
--- NOTE | 2020-06-29 20:45 | NUR ---
SCHEDULED MEDICATIONS ADMINISTERED. PRN MIRILAX ADMINISTERED MIXED IN 6 OZ WATER FOR C/O "NO BM X2 DAYS". SEE E-MAR.
--- NOTE | 2020-06-29 20:50 | NUR ---
250 ML CLEAR DARK YELLOW URINE EMPTIED FROM URINAL. PT AWARE YI IS AVAILABLE FOR RETENTION/PAIN. PT DENIES RETENTION OR DISCOMFORT AT THIS TIME. AGREES TO REPORT.
--- NOTE | 2020-06-29 23:04 | NUR ---
JESSICA FLATWORK ASSEMBLER IN ROOM COLLECTING PTT
--- NOTE | 2020-06-29 23:46 | NUR ---
150ML CLEAR YELLOW URINE EMPTIED FROM URINAL. QUESTIONED PT IF HE FELT ANY PRESSURE IN THE BLADDER OR FEELINGS OF FULL BLADDER/HAVING TO URINATE. PT STATES "NO BECAUSE I JUST EMPTIED IT". TEACHING ON URINE RETENTION AND IMPORTANCE OF REPORTING REINFORCED AT THIS TIME. PT VERBALIZES UNDERSTANDING.
--- NOTE | 2020-06-29 23:58 | NUR ---
PTT 72.4, NO CHANGES TO HEPARIN GTT. REPEAT PTT ORDERED FOR 06/30/20 AT 0500.
[2020-06-30] VITALS (7 sets, daily range): BP systolic 121–150; BP diastolic 59–74
--- NOTE | 2020-06-30 02:05 | NUR ---
PT APPEARS TO BE SLEEPING COMFORTABLY, LAYING IN BED WITH EYES CLOSED, RESPIRATIONS REGULAR AND UNLABORED. NO APPARENT DISTRESS. CALL CAMERON REMAINS WITHIN REACH.
--- NOTE | 2020-06-30 04:15 | NUR ---
700ML CLEAR YELLOW URINE EMPTIED FROM URINAL. PT REPORTS HE ACCIDENTALLY SPILLED SOME URINE. GOWN AND PARTIAL LINEN CHANGE COMPLETED.
--- NOTE | 2020-06-30 05:00 | NUR ---
JESSICA MULTI CARE TECHNICIAN IN ROOM TO COLLECT PTT.
--- NOTE | 2020-06-30 05:56 | NUR ---
PTT 76.8 SEC, NO CHANGES TO HEPARIN GTT. PTT ORDERED FOR 07/01/20 AT 0500.
--- NOTE | 2020-06-30 06:28 | NUR ---
550 ML CLEAR YELLOW URINE EMPTIED FROM URINAL.
--- NOTE | 2020-06-30 07:40 | NUR ---
REPORT RECEIVED FROM JOE CARMICHAEL. PT SITTING UP IN BED HIGH FOWLERS AND SET UP FOR BREAKFAST; ALERT AND ORIENTED X 3 WITH FLAT AFFECT; DELAYED RESPONSE AT TIMES. DENIES PAIN, BUT C/O UPPER ABDOMINAL TENDERNESS 06/03; HAS NOT HAD BOWEL MOVEMENT IN 3 DAYS. RESPIRATIONS EVEN AND UNLABORED ON ROOM AIR; SPO2 97-98%; C/O RUNNY NOSE. HEPARIN GTT INFUSING AT 800 UNITS/HR INTO #20G TO RAC; NS INFUSING AT 100ML/HR INTO #20G TO LFA. POC REVIEWED; PT ENCOURAGED TO VERBALIZE CONCERNS. STATES UNDERSTANDING. SAFETY MEASURES IN PLACE. CALL LIGHT WITHIN REACH.
--- NOTE | 2020-06-30 08:30 | NUR ---
DR. POTTER AT BEDSIDE.
[2020-06-30] MEDS ORDERED: XARELTO15 MG PO (08:52)
--- NOTE | 2020-06-30 09:01 | NUR ---
XARELTO GIVEN WITH AM MEDICATION AND HEPARIN DRIP DISCONTINUED.
--- NOTE | 2020-06-30 10:00 | NUR ---
IV site discontinued X 2, cath intact. No edema , no redness, voices no discomfort. Sister notified of patient discharge status; states that she can arrive after her 2:30p covid vaccine appointment. Pt updated on wait time for his ride. Disconnected from attachments and assisted into clothes.
--- NOTE | 2020-06-30 12:28 | NUR ---
GIVEN LUNCH TRAY. PT SITTING UP WATCHING TV WATCHING TV. NO REQUESTS OR CONCERNS AT THIS TIME. CALL LIGHT WITHIN REACH.
--- NOTE | 2020-06-30 14:30 | NUR ---
PT MOVING AROUND ROOM INDEPENDENTLY; STANDING AT DOOR AND ASKING WHEN HE CAN GO. REMINDED THAT HIS SISTER WILL BE HERE AFTER HER 2:30 APPT.
--- NOTE | 2020-06-30 15:00 | NUR ---
Discharge instructions given. Patient verbalizes understanding of same. Discharged in stable condition via Wheelchair to Home with family. All belongings sent with pt including prescription for xarelto.
== END 2020-06-30 15:00 | disposition home or self-care (01) | DRG 176 ==
PROVIDERS: Emergency Medicine; ADMIT Internal Medicine
DX: I26.99 Other pulmonary embolism without acute cor pulmonale (principal); I10 Essential (primary) hypertension; E78.5 Hyperlipidemia, unspecified; K21.9 Gastro-esophageal reflux disease without esophagitis; N40.0 Benign prostatic hyperplasia without lower urinary tract symptoms; F41.9 Anxiety disorder, unspecified; F32.9 Major depressive disorder, single episode, unspecified; K58.1 Irritable bowel syndrome with constipation; Z20.822 Contact with and (suspected) exposure to COVID-19
CPT/HCPCS: J1644; Q9967

== ENCOUNTER 2021-09-11 15:38 | Observation (INO) | payer MEDICARE ==
[2021-09-11] VITALS (18 sets, daily range): BP systolic 119–150; BP diastolic 62–91
[~2021-09-11] VITALS: Ht 167.6 cm; Wt 59.0 kg
[~2021-09-11 15:38] MED LIST changes: +ATIVAN1 MG PO; +BUPROPION HCL150 MG PO; +OLANZAPINE10 MG PO; +TAMSULOSIN HCL0.4 MG PO; +VERAPAMIL HYDR240 MG PO; +XARELTO15 MG PO
[2021-09-11 16:27] LABS: HEMATOCRIT 42.3 % (39.0-50.0); HEMOGLOBIN 13.6 g/dl (14.0-18.0); IMMATURE GRANULOCYTES 0.1 % (0.0-5.0); MEAN CELL VOLUME 95.7 fL CALC (80.0-100.0); MEAN CORPUSCULAR HGB 30.8 pG CALC (26.0-32.0); MEAN CORPUSCULAR HGB CONC 32.2 g/dL CAL (32.0-36.0); NEUT# 5.27 thou/uL (1.82-7.42); RED BLOOD COUNT 4.42 mill/uL (4.70-6.10); RED CELL DISTRI WIDTH 12.1 % (11.5-15.5)
[2021-09-11 16:47] LABS: ALBUMIN 3.7 g/dL (3.2-5.0); ALKALINE PHOSPHATASE 70 u/l (38-126); ANION GAP 10 (6-22 (CALC)); BUN 20 mg/dL (8-23); BUN/CREATININE RATIO 22 (12-20 (CALC)); CARBON DIOXIDE 29 mmol/l (22-30); CHLORIDE 105 mmol/l (95-108); CREATININE 0.9 mg/dL (0.7-1.3); GFR FOR AFR.AMER. > 60 ML/MIN (>=60 (CALC)); GFR OTHER RACES > 60 ML/MIN (>=60 (CALC)); INTERNATIONAL NORMALIZED RATIO 0.9 RATIO (0.7-1.3); POTASSIUM 4.1 mmol/l (3.5-5.1); PROTHROMBIN TIME 9.9 SECONDS (9.0-12.5); SGOT/AST 21 u/l (19-48); SODIUM 140 mmol/l (137-146); TOTAL PROTEIN 6.6 g/dL (6.3-8.2)
[2021-09-11 16:48] LABS: BILIRUBIN, TOTAL 0.2 mg/dL (0.0-1.4)
[2021-09-11 18:33] LABS: URINE BILIRUBIN - DIPSTICK NEGATIVE (NEGATIVE); URINE BLOOD DIPSTICK NEGATIVE (NEGATIVE); URINE COLOR YELLOW; URINE GLUCOSE - DIPSTICK NEGATIVE (NEGATIVE); URINE KETONE NEGATIVE (NEGATIVE); URINE LEUK ESTERASE NEGATIVE (NEGATIVE); URINE PH 6.5 (4.5-8.0); URINE PROTEIN - DIPSTICK NEGATIVE (NEG-TRACE); URINE SPECIFIC GRAVITY 1.025; URINE UROBILINOGEN - DIPSTICK 0.2 E.U./dL (0.2)
[2021-09-11 18:41] LABS: URINE NITRITE - DIPSTICK NEGATIVE (Negative)
--- NOTE | 2021-09-11 19:00 | NUR ---
ASSUMED CARE OF PT. RESTING QUIETLY.
--- NOTE | 2021-09-11 19:52 | NUR ---
Report called to floor nurse
--- NOTE | 2021-09-11 20:00 | NUR ---
PATIENT ADMITTED TO [facility] TO ROOM 261 VIA WC. PATIENT ALERT AND ORIENTED. ABLE TO MAKE NEEDS KNOWN. PATIENT ASSIST X1 FROM WC TO ROOM BED. ORIENTED PATIENT TO ROOM, CALL LIGHT AND SURROUNDINGS. ASSESSMENT COMPLETE. NO SKIN ISSUES NOTED. NON SKID SOCKS ON. NO SIGNS OF DISTRESS. NO COMPLAINTS OF PAIN. FRESH WATER AT BEDSIDE. BED IN LOW POSITION. CALL CAMERON IN REACH. REMINDED PATIENT IF HE NEEDS ASSISTANCE TO PLEASE USE CALL LIGHT.
--- NOTE | 2021-09-11 21:28 | NUR ---
NOTIFIED PROVIDER OF PATIENTS COVID ANTIBODY BLOOD WORK.
--- NOTE | 2021-09-11 23:40 | NUR ---
PATIENT RESTING IN BED. NO COMPLAINTS VOICED AT THIS TIME. BED REMAINS IN LOW POSITION. CALL CAMERON IN REACH.
[2021-09-12] VITALS (9 sets, daily range): BP systolic 127–177; BP diastolic 69–90
--- NOTE | 2021-09-12 04:00 | NUR ---
PATIENT RESTING IN BED QUIETLY. NO COMPLAINTS VOICED AT THIS TIME. BED REMAINS IN LOW POSITION. CALL CAMERON IN REACH.
[2021-09-12 05:12] LABS: HEMATOCRIT 40.4 % (39.0-50.0); HEMOGLOBIN 12.8 g/dl (14.0-18.0); IMMATURE GRANULOCYTES 0.1 % (0.0-5.0); MEAN CELL VOLUME 95.3 fL CALC (80.0-100.0); MEAN CORPUSCULAR HGB 30.2 pG CALC (26.0-32.0); MEAN CORPUSCULAR HGB CONC 31.7 g/dL CAL (32.0-36.0); NEUT# 4.33 thou/uL (1.82-7.42); RED BLOOD COUNT 4.24 mill/uL (4.70-6.10); RED CELL DISTRI WIDTH 12.1 % (11.5-15.5)
[2021-09-12 05:23] LABS: ANION GAP 8 (6-22 (CALC)); BUN 19 mg/dL (8-23); BUN/CREATININE RATIO 24 (12-20 (CALC)); CARBON DIOXIDE 29 mmol/l (22-30); CHLORIDE 104 mmol/l (95-108); CREATININE 0.8 mg/dL (0.7-1.3); GFR FOR AFR.AMER. > 60 ML/MIN (>=60 (CALC)); GFR OTHER RACES > 60 ML/MIN (>=60 (CALC)); MAGNESIUM 2.1 mg/dL (1.6-2.3); POTASSIUM 3.8 mmol/l (3.5-5.1); SODIUM 137 mmol/l (137-146)
--- NOTE | 2021-09-12 05:28 | NUR ---
PATIENT BLADDER SCANNED WITH 397CC SHOWING IN BLADDER.
--- NOTE | 2021-09-12 05:59 | NUR ---
CALLED PROVIDER AND EXPLAINED PATIENT VOICED NEEDING TO VOID BUT COULDNT. RECEIVED ORDER TO STRAIGHT CATH. 325CC YELLOW URINE OUTPUT.
[2021-09-12] MEDS ORDERED: XARELTO10 MG PO (07:07)
--- NOTE | 2021-09-12 08:00 | NUR ---
PT RESTING IN HIGH FOWLERS POSITION. ASSESSMENT AND VS COMPLETED. HEART RYTHYM NORMAL TELE IN PLACE. RESPIRATION EVEN AND UNLABORED. BOWEL SOUNDS ACTIVE. IV SITE NOTED . PT HAS BEEN STRAIGHT CATH DUE TO NO URINE OUT PUT . ORDERS TO INSERT CATHETER IF NO URINE OUT PUT BY NOON. PT C/O HEADACHED MEDICATE DPER EMAR. ALL SAFETY PRECAUTIONS IN PLACE.
--- NOTE | 2021-09-12 10:03 | NUR ---
RECIEVED REPORT FROM REDIPPER
--- NOTE | 2021-09-12 11:52 | NUR ---
PT RESTING IN HIGH FOWLERS . PT URINARY RETNETION 597. YI TO BE INSERTED. PER DR. POTTER ORDERS. SAFETY PRECAUTIONS IN PLACE.
--- NOTE | 2021-09-12 16:06 | NUR ---
PT RESTING IN SEMI FOWLERS POSITION. RESPIRATIONS EVEN AND UNLABORED. PT DENIES ADDITIONAL NEEDS AT THE TIME ALL SAFTEY PRECAUTIONS IN PLACE.
--- NOTE | 2021-09-12 19:00 | NUR ---
PATIENT ALERT. CONSTANTLY WANTING TO SIT ON THE BED PAIN. REMOVED BED DIALLO, NO BM NOTED. ASSESSMENT COMPLETE. NO SIGNS OF DISTRESS NOTED. NO COMPLAINTS OF PAIN. BED REMAINS IN LOW POSITION. CALL BED IN REACH.
--- NOTE | 2021-09-12 23:45 | NUR ---
PATIENT RESTING IN BED QUIETLY. NO COMPLAINTS VOICED AT THIS TIME. PATIENT GUARDING YI CATH TUBING. NO SIGNS OF DISTRESS NOTED OR PAIN. BED REMAINS IN LOW POSITION. CALL CAMERON IN REACH. BED ALARM ACTIVE FOR PATIENT SAFETY.
[2021-09-13 05:02] VITALS: BP 153/80
--- NOTE | 2021-09-13 05:02 | NUR ---
PATIENT RESTING IN BED. NO COMPLAINTS VOICED AT THIS TIME. YI CATHETER EMPTIED, CLEAR YELLOW URINE. BED REMAINS IN LOW POSITION. BED ALARM ACTIVE DUE TO PATIENT SITTING UP IN BED GRABBING HIS YI BAG. CALL CAMERON IN REACH. PROVIDED PATIENT WITH FRESH ICE WATER.
[2021-09-13 06:51] VITALS: BP 168/84
[2021-09-13 06:52] VITALS: BP 168/84
--- NOTE | 2021-09-13 08:00 | NUR ---
PT IN BED; A&O X2. EVEN AND UNLABORED RESPIRATIONS; CLEAR LUNG SOUNDS UPON AUSCULTATION. TELEMETRY IN PLACE. IV SITE HEALTHY AND PATENT. ACTIVE BOWEL SOUNDS X4 QUADRANTS. YI IN PLACE TO GRAVITY WITH CLAR, YELLOW URINE. SAFETY PRECAUTIONS IN PLACE WITH CALL LIGHT IN REACH.
[2021-09-13 09:01] LABS: HEMATOCRIT 43.8 % (39.0-50.0); HEMOGLOBIN 14.2 g/dl (14.0-18.0); IMMATURE GRANULOCYTES 0.1 % (0.0-5.0); MEAN CORPUSCULAR HGB 30.5 pG CALC (26.0-32.0); MEAN CORPUSCULAR HGB CONC 32.4 g/dL CAL (32.0-36.0); NEUT# 7.88 thou/uL (1.82-7.42); RED BLOOD COUNT 4.66 mill/uL (4.70-6.10); RED CELL DISTRI WIDTH 11.8 % (11.5-15.5)
[2021-09-13 09:26] LABS: ANION GAP 10 (6-22 (CALC)); BUN 16 mg/dL (8-23); BUN/CREATININE RATIO 22 (12-20 (CALC)); CARBON DIOXIDE 27 mmol/l (22-30); CHLORIDE 104 mmol/l (95-108); CREATININE 0.7 mg/dL (0.7-1.3); GFR FOR AFR.AMER. > 60 ML/MIN (>=60 (CALC)); GFR OTHER RACES > 60 ML/MIN (>=60 (CALC)); MAGNESIUM 2.4 mg/dL (1.6-2.3); SODIUM 137 mmol/l (137-146)
--- NOTE | 2021-09-13 12:10 | NUR ---
PT SITTING IN HIGH ZHANG'S HAVING LUNCH. NO DISTRESS OR PAIN NOTED. TELEMETRY IN PLACE. SAFETY PRECAUTIONS IN PLACE WITH CALL LIGHT IN REACH.
[2021-09-13 14:39] VITALS: BP 155/84
--- NOTE | 2021-09-13 15:59 | NUR ---
PT IN BED; PT'S SISTER AT BEDSIDE. NO DISTRESS OR PAIN NOTED AT THIS TIME. URINE SAMPLE COLLECTED AND SENT TO LAB. SAFETY PRECAUTIONS IN PLACE WITH CALL LIGHT IN REACH.
[2021-09-13 16:01] LABS: URINE BILIRUBIN - DIPSTICK NEGATIVE (NEGATIVE); URINE BLOOD DIPSTICK LARGE (NEGATIVE); URINE CLARITY CLEAR; URINE COLOR YELLOW; URINE GLUCOSE - DIPSTICK NEGATIVE (NEGATIVE); URINE KETONE NEGATIVE (NEGATIVE); URINE LEUK ESTERASE TRACE (Negative); URINE NITRITE - DIPSTICK NEGATIVE (Negative); URINE PROTEIN - DIPSTICK NEGATIVE (NEG-TRACE); URINE SPECIFIC GRAVITY 1.025; URINE UROBILINOGEN - DIPSTICK 0.2 E.U./dL (0.2)
--- NOTE | 2021-09-13 19:00 | NUR ---
REPORT RECEIVED FROM Deann LEE RN.
[2021-09-13 19:06] VITALS: BP 125/70
--- NOTE | 2021-09-13 22:30 | NUR ---
PATIENT ASSEMENT COMPLETED AT THIS TIME. MEDICATIONS ADMINISTERED PER MAR. DENIES ANY CURRENT PAIN OR NEEDS AT THIS TIME. EXPRESSES CONCERN REGARDING PLACEMENT. THERAPEUTIC CONVERSATION PROVIDED. CALL LIGHT AND BEDSIDE TABLE WTIHIN REACH.
[2021-09-14] VITALS (8 sets, daily range): BP systolic 93–166; BP diastolic 46–77
--- NOTE | 2021-09-14 | NUR ---
PATIENT SLEEPING SOUNDLY, UNDISTURBED BY WRITTER, TELE IN PLACE. CALL LIGHT AND BEDSIDE TABLE WITHIN REACH, YI CONTINUES TO DRAIN CLEAR URINE TO GRAVITY.
[2021-09-14 05:24] LABS: HEMATOCRIT 44.4 % (39.0-50.0); HEMOGLOBIN 14.3 g/dl (14.0-18.0); IMMATURE GRANULOCYTES 0.1 % (0.0-5.0); MEAN CELL VOLUME 95.5 fL CALC (80.0-100.0); MEAN CORPUSCULAR HGB 30.8 pG CALC (26.0-32.0); MEAN CORPUSCULAR HGB CONC 32.2 g/dL CAL (32.0-36.0); NEUT# 5.76 thou/uL (1.82-7.42); RED BLOOD COUNT 4.65 mill/uL (4.70-6.10); RED CELL DISTRI WIDTH 12.1 % (11.5-15.5)
[2021-09-14 05:44] LABS: ALBUMIN 3.8 g/dL (3.2-5.0); ALKALINE PHOSPHATASE 79 u/l (38-126); BUN 22 mg/dL (8-23); BUN/CREATININE RATIO 23 (12-20 (CALC)); CARBON DIOXIDE 32 mmol/l (22-30); CHLORIDE 103 mmol/l (95-108); GFR FOR AFR.AMER. > 60 ML/MIN (>=60 (CALC)); GFR OTHER RACES > 60 ML/MIN (>=60 (CALC)); MAGNESIUM 2.4 mg/dL (1.6-2.3); SGOT/AST 28 u/l (19-48); SODIUM 138 mmol/l (137-146); TOTAL PROTEIN 6.6 g/dL (6.3-8.2)
[2021-09-14 05:46] LABS: ANION GAP 7 (6-22 (CALC)); BILIRUBIN, TOTAL 0.3 mg/dL (0.0-1.4); POTASSIUM 3.8 mmol/l (3.5-5.1)
--- NOTE | 2021-09-14 05:50 | NUR ---
PATIETN ASKING WHAT SHEOULD HE DO THIS MORNING, HE NEEDS SOMETHING TO DO. PATIENT ENCOURGAED TO GET SOME REST, PATIENT STATES "I GUESS I CAN GET SOME REST" PATIENT CALL LIGHT AND BEDSIDE TABLE WTIHIN REACH.
--- NOTE | 2021-09-14 06:45 | NUR ---
RECEIVED REPORT FROM JOE SALAS.
--- NOTE | 2021-09-14 08:05 | NUR ---
PT SITTING ON RECLINER; A&O X2. EVEN AND UNLABORED RESPIRATIONS; CLEAR LUNG SOUNDS UPON AUSCULTATION. TELEMETRY IN PLACE WITH LAST READING SR-87. IV SITE HEALTHY AND PATENT. ACTIVE BOWEL SOUNDS X4 QUADRANTS. YI IN PLACE; TO GRAVITY WITH CLEAR, YELLOW URINE. BODY ALARM AND SAFETY PRECAUTIONS IN PLACE WITH CALL LIGHT IN REACH.
--- NOTE | 2021-09-14 10:59 | NUR ---
YI REMOVED AT 1059; PT TOLERATED WELL. BED ALARM AND SAFETY PRECAUTIONS IN PLACE. CALL LIGHT IN REACH.
--- NOTE | 2021-09-14 11:42 | NUR ---
Pt seen for treatment this am, he voiced no complaints and was cooperative with treatment. He was OOB in chair. Gait with RW 2 x 40 with CGA pt with mild LOB noted posterior in stance. Sit to stand with CGA and verbal cues for safety awareness, tended to try and stand pulling on walker and does not reach for chair prior to sitting. Sitting LAQ/marching performed, hip abd/add/DF in recline position 2 x10 reps. Pt moved sit to and from supine, rolling side to side indep. Standing wt shift/up on toes with CGA/mmin assist with LOB posteriorly. BP 105/50 to 96/57, HR 93 ro 87, 02 sats 94-95% A- Pt with LOB posteriorly without support, poor safety skills. He would benefit from rehab to improve mobility/safety. [facility] as per tash. P- Will continue to follow for above.
--- NOTE | 2021-09-14 12:22 | NUR ---
PT SITTING ON BED; HAVING LUNCH. NO DISTRESS OR PAIN NOTED. PT EDUCATED ON THE USE OF URINAL SINCE YI WAS REMOVED. BED ALARM AND SAFETY PRECAUTIONS IN PLACE WITH CALL LIGHT IN REACH.
--- NOTE | 2021-09-14 15:45 | NUR ---
PT ASSISTED TO BATHROOM BY AIDE; PT STATED HE WAS HAVING A BM. PT HAD NO BM, BUT VOIDED ON TOILET WITHOUT A HAT. UNABLE TO MEASURE THE AMOUNT VOIDED. BLADDER SCANNED PT; SCANNER SHOWED 0 URINE RETENTION. BED ALARM AND SAFETY PRECAUTIONS IN PLACE WITH CALL LIGHT IN REACH.
--- NOTE | 2021-09-14 16:00 | NUR ---
PT IN BED WATCHING TV. FAMILY AT BEDSIDE. NO DISTRESS OR PAIN NOTED. NO NEEDS AT THE TIME. SAFETY PRECAUTIONS IN PLACE WITH CALL LIGHT IN PLACE.
--- NOTE | 2021-09-14 18:30 | NUR ---
PT IN BED WATCHING TV. NO DISTRESS NOTED. PT DENIES PAIN AT THE MOMENT. ASSESSMENT AND BLADDER SCANNER DONE AT THIS TIME. BLADDER SCAN; SHOWED 0 URINE RETENTION. REMINDED PT THAT HE NEEDS TO USE URINAL; PT AGREED AND DEMOSTRATED UNDERSTANDING. BED ALARM AND SAFETY PRECAUTIONS IN PLACE. CALL LIGHT IN REACH.
--- NOTE | 2021-09-14 19:00 | NUR ---
REPORT RECEIVED FROM Deann LEE LPN
--- NOTE | 2021-09-14 21:30 | NUR ---
ASSEMENT COMPLETED AT THIS TIME CORGEG HELD AT THIS TIME. BP REMAINS LOW. MD NOTIFIED, NO NEW ORDERS RECEIVED. BLADDER SCAN AT THIS TIME CC. CALL LIGHT WITHIN REACH. BED ALARM ON FOR SAFETY.
[2021-09-15 00:27] VITALS: BP 100/55
--- NOTE | 2021-09-15 01:30 | NUR ---
PATIENT RESTING COMOFRTBALY, DENIES ANY CURRENT NEEDS. BLADDER SCAN COMPLETED 0 CC NOTED. CALL LIGHT AND BEDSIDE TBALE [id number] REACH
[2021-09-15 04:26] VITALS: BP 103/58
--- NOTE | 2021-09-15 05:09 | NUR ---
250CC IN URINAL, BLADDER SCAN 26CC
[2021-09-15 05:42] LABS: HEMATOCRIT 39.6 % (39.0-50.0); HEMOGLOBIN 12.8 g/dl (14.0-18.0); IMMATURE GRANULOCYTES 0.1 % (0.0-5.0); MEAN CELL VOLUME 95.4 fL CALC (80.0-100.0); MEAN CORPUSCULAR HGB 30.8 pG CALC (26.0-32.0); MEAN CORPUSCULAR HGB CONC 32.3 g/dL CAL (32.0-36.0); NEUT# 4.8 thou/uL (1.82-7.42); RED BLOOD COUNT 4.15 mill/uL (4.70-6.10); RED CELL DISTRI WIDTH 12.1 % (11.5-15.5)
[2021-09-15 06:04] LABS: ALBUMIN 3.3 g/dL (3.2-5.0); ALKALINE PHOSPHATASE 61 u/l (38-126); ANION GAP 7 (6-22 (CALC)); BILIRUBIN, TOTAL 0.3 mg/dL (0.0-1.4); BUN 37 mg/dL (8-23); BUN/CREATININE RATIO 34 (12-20 (CALC)); CARBON DIOXIDE 29 mmol/l (22-30); CHLORIDE 106 mmol/l (95-108); CREATININE 1.1 mg/dL (0.7-1.3); GFR FOR AFR.AMER. > 60 ML/MIN (>=60 (CALC)); GFR OTHER RACES > 60 ML/MIN (>=60 (CALC)); MAGNESIUM 2.4 mg/dL (1.6-2.3); POTASSIUM 3.8 mmol/l (3.5-5.1); SGOT/AST 25 u/l (19-48); SODIUM 139 mmol/l (137-146); TOTAL PROTEIN 5.8 g/dL (6.3-8.2)
--- NOTE | 2021-09-15 08:00 | NUR ---
SHIFT CHANGE REPORT, PT AWAKE ALERT AND ORIENTED SITTING UP ON BEDSIDE, DENIES/DISCOMFORT AT THIS TIME, TELE MONITOR IN PLACE, CALL CAMERON IN REACH AND BED LOCKED IN LOWEST POSITION.
[2021-09-15 09:03] VITALS: BP 125/62
--- NOTE | 2021-09-15 12:00 | NUR ---
SITTING UP IN RECLINER, ALL NEEDS ADDRESSED
--- NOTE | 2021-09-15 13:22 | NUR ---
Pt seen at 9 am, he was OOB in chair, reported being tried, did not sleep well last pm. Pt performed gait with RW 2 x 60' into hallway with CGA assist, min assist with turning. Pt ambulated as additional 10' in room without assist device and with CGA/min assist. LE ex performed x 20 reps in sitting including marching, LAQ. ankle DF and passive hamsting/calf stretch 3 x 15 sec. BP 125/62,136/64, 139/68, HR 92,91,94, 02sats 96% and above. A- Pt with mild retro pulsive in stance without assist device. Gait was better and safer with walker use. [facility] unchanged ECF but pt sister has elected him to return home. P- Pt for d/c today.
[2021-09-15 15:21] VITALS: BP 131/63
[2021-09-15 15:23] VITALS: BP 131/63
--- NOTE | 2021-09-15 15:54 | NUR ---
Discharge instructions given. Patient verbalizes understanding of same. Discharged in good condition via Wheelchair to Home with family. All belongings sent with pt.
== END 2021-09-15 15:55 | disposition home health service (06) ==
LOC: ED 15:38 → ED-I 18:35 → MS2 18:50 → ED 18:50 → MS2 09-15 15:55
PROVIDERS: Family Medicine; Nurse Practitioner; ADMIT Internal Medicine; ATTEND Internal Medicine
PROC: 0T9B70Z Drainage of Bladder with Drainage Device, Via Natural or Artificial Opening (ICD-10-PCS; principal; 2021-09-12)
DX: R62.7 Adult failure to thrive (principal); R53.1 Weakness; I10 Essential (primary) hypertension; N40.1 Benign prostatic hyperplasia with lower urinary tract symptoms; R33.8 Other retention of urine; E78.5 Hyperlipidemia, unspecified; K21.9 Gastro-esophageal reflux disease without esophagitis; F20.9 Schizophrenia, unspecified; F41.9 Anxiety disorder, unspecified; F32.A Depression, unspecified; K58.9 Irritable bowel syndrome, unspecified; Z68.21 Body mass index [BMI] 21.0-21.9, adult; Z85.820 Personal history of malignant melanoma of skin; Z86.79 Personal history of other diseases of the circulatory system; Z86.718 Personal history of other venous thrombosis and embolism; Z86.711 Personal history of pulmonary embolism; Z79.01 Long term (current) use of anticoagulants; Z20.822 Contact with and (suspected) exposure to COVID-19
CPT/HCPCS: Q9967

== ENCOUNTER 2021-11-22 14:51 | Observation (INO) | payer MEDICARE ==
[~2021-11-22] VITALS: Ht 167.6 cm; Wt 60.0 kg
[~2021-11-22 14:51] MED LIST changes: +XARELTO10 MG PO
[2021-11-22 15:10] VITALS: BP 178/88
[2021-11-22 16:00] LABS: HEMATOCRIT 41.2 % (39.0-50.0); HEMOGLOBIN 13.2 g/dl (14.0-18.0); IMMATURE GRANULOCYTES 0.1 % (0.0-5.0); MEAN CELL VOLUME 94.3 fL CALC (80.0-100.0); MEAN CORPUSCULAR HGB 30.2 pG CALC (26.0-32.0); NEUT# 5.58 thou/uL (1.82-7.42); RED BLOOD COUNT 4.37 mill/uL (4.70-6.10); RED CELL DISTRI WIDTH 12.9 % (11.5-15.5)
[2021-11-22 16:09] LABS: ALBUMIN 3.9 g/dL (3.2-5.0); ANION GAP 12 (6-22 (CALC)); BILIRUBIN, TOTAL 0.3 mg/dL (0.0-1.4); CARBON DIOXIDE 29 mmol/l (22-30); CHLORIDE 107 mmol/l (95-108); CREATININE 0.7 mg/dL (0.7-1.3); GFR FOR AFR.AMER. > 60 ML/MIN (>=60 (CALC)); GFR OTHER RACES > 60 ML/MIN (>=60 (CALC)); POTASSIUM 3.6 mmol/l (3.5-5.1); SGOT/AST 22 u/l (19-48); SODIUM 143 mmol/l (137-146); TOTAL PROTEIN 6.7 g/dL (6.3-8.2)
[2021-11-22 16:21] LABS: ALKALINE PHOSPHATASE 97 u/l (38-126); BUN 15 mg/dL (8-23); BUN/CREATININE RATIO 21 (12-20 (CALC))
[2021-11-22 17:33] LABS: URINE BILIRUBIN - DIPSTICK NEGATIVE (NEGATIVE); URINE BLOOD DIPSTICK NEGATIVE (NEGATIVE); URINE COLOR YELLOW; URINE GLUCOSE - DIPSTICK NEGATIVE (NEGATIVE); URINE KETONE NEGATIVE (NEGATIVE); URINE LEUK ESTERASE NEGATIVE (NEGATIVE); URINE PROTEIN - DIPSTICK NEGATIVE (NEG-TRACE); URINE SPECIFIC GRAVITY 1.025; URINE UROBILINOGEN - DIPSTICK 0.2 E.U./dL (0.2)
[2021-11-22 17:38] VITALS: BP 176/87
[2021-11-22 17:41] LABS: URINE NITRITE - DIPSTICK NEGATIVE (Negative)
[2021-11-22 19:05] VITALS: BP 178/87
[2021-11-23] VITALS (7 sets, daily range): BP systolic 108–163; BP diastolic 55–85
[2021-11-23 05:47] LABS: ALBUMIN 3.3 g/dL (3.2-5.0); ALKALINE PHOSPHATASE 80 u/l (38-126); ANION GAP 7 (6-22 (CALC)); BILIRUBIN, TOTAL 0.3 mg/dL (0.0-1.4); BUN 12 mg/dL (8-23); BUN/CREATININE RATIO 15 (12-20 (CALC)); CARBON DIOXIDE 30 mmol/l (22-30); CHLORIDE 108 mmol/l (95-108); CREATININE 0.8 mg/dL (0.7-1.3); GFR FOR AFR.AMER. > 60 ML/MIN (>=60 (CALC)); GFR OTHER RACES > 60 ML/MIN (>=60 (CALC)); POTASSIUM 3.2 mmol/l (3.5-5.1); SGOT/AST 17 u/l (19-48); SODIUM 142 mmol/l (137-146); TOTAL PROTEIN 5.8 g/dL (6.3-8.2)
[2021-11-24] VITALS (9 sets, daily range): BP systolic 105–145; BP diastolic 53–72
[2021-11-25 03:47] VITALS: BP 145/68
[2021-11-25 05:37] LABS: HEMATOCRIT 35.7 % (39.0-50.0); HEMOGLOBIN 11.5 g/dl (14.0-18.0); MEAN CELL VOLUME 94.2 fL CALC (80.0-100.0); MEAN CORPUSCULAR HGB 30.3 pG CALC (26.0-32.0); MEAN CORPUSCULAR HGB CONC 32.2 g/dL CAL (32.0-36.0); RED BLOOD COUNT 3.79 mill/uL (4.70-6.10)
[2021-11-25 06:05] LABS: ANION GAP 8 (6-22 (CALC)); BUN 23 mg/dL (8-23); BUN/CREATININE RATIO 26 (12-20 (CALC)); CARBON DIOXIDE 28 mmol/l (22-30); CHLORIDE 110 mmol/l (95-108); CREATININE 0.9 mg/dL (0.7-1.3); GFR FOR AFR.AMER. > 60 ML/MIN (>=60 (CALC)); GFR OTHER RACES > 60 ML/MIN (>=60 (CALC)); MAGNESIUM 2.2 mg/dL (1.6-2.3); POTASSIUM 3.8 mmol/l (3.5-5.1); SODIUM 142 mmol/l (137-146)
[2021-11-25 07:02] VITALS: BP 137/65
[2021-11-25 10:38] VITALS: BP 147/77
[2021-11-25 19:15] VITALS: BP 107/50
[2021-11-25 23:07] VITALS: BP 124/63
[2021-11-26 03:44] VITALS: BP 118/54
[2021-11-26 07:07] VITALS: BP 171/92
[2021-11-26 11:07] VITALS: BP 153/74
[2021-11-26] MEDS ORDERED: XARELTO20 MG PO (11:28)
[2021-11-26] MEDS ORDERED: ATIVAN1 MG PO (11:32)
== END 2021-11-26 13:08 ==
LOC: MS2 14:51
PROVIDERS: ADMIT Internal Medicine; ATTEND Internal Medicine
DX: R53.1 Weakness (principal); R62.7 Adult failure to thrive; I10 Essential (primary) hypertension; R00.0 Tachycardia, unspecified; E78.5 Hyperlipidemia, unspecified; K58.1 Irritable bowel syndrome with constipation; F41.9 Anxiety disorder, unspecified; F32.A Depression, unspecified; K21.9 Gastro-esophageal reflux disease without esophagitis; N40.0 Benign prostatic hyperplasia without lower urinary tract symptoms; Z91.81 History of falling; Z85.820 Personal history of malignant melanoma of skin; Z68.21 Body mass index [BMI] 21.0-21.9, adult; Z20.822 Contact with and (suspected) exposure to COVID-19
CPT/HCPCS: J1650

== ENCOUNTER 2022-04-05 10:36 | Inpatient (IN) | payer MEDICARE ==
[~2022-04-05] VITALS: Ht 167.6 cm; Wt 56.0 kg
[2022-04-05] VITALS (69 sets, daily range): BP systolic 106–150; BP diastolic 50–85
[~2022-04-05 10:36] MED LIST changes: +XARELTO20 MG PO
[2022-04-05 11:25] LABS: BASO% 0.1 % (0-3); HEMATOCRIT 37.2 % (39.0-50.0); HEMOGLOBIN 12.1 g/dl (14.0-18.0); IMMATURE GRANULOCYTES 0.1 % (0.0-5.0); LYMPH% 4.7 % (15-41); MEAN CELL VOLUME 93.2 fL CALC (80.0-100.0); MEAN CORPUSCULAR HGB 30.3 pG CALC (26.0-32.0); MEAN CORPUSCULAR HGB CONC 32.5 g/dL CAL (32.0-36.0); NEUT# 8.57 thou/uL (1.82-7.42); NEUT% 87.1 % (42-76); RED BLOOD COUNT 3.99 mill/uL (4.70-6.10); RED CELL DISTRI WIDTH 13.8 % (11.5-15.5)
[2022-04-05 11:40] LABS: ALBUMIN 3.4 g/dL (3.2-5.0); ALKALINE PHOSPHATASE 61 u/l (38-126); ANION GAP 7 (6-22 (CALC)); BILIRUBIN, TOTAL 0.2 mg/dL (0.0-1.4); BUN 25 mg/dL (8-23); BUN/CREATININE RATIO 23 (12-20 (CALC)); CARBON DIOXIDE 29 mmol/l (22-30); CHLORIDE 109 mmol/l (95-108); CREATININE 1.1 mg/dL (0.7-1.3); GFR FOR AFR.AMER. > 60 ML/MIN (>=60 (CALC)); GFR OTHER RACES > 60 ML/MIN (>=60 (CALC)); POTASSIUM 3.7 mmol/l (3.5-5.1); SGOT/AST 28 u/l (19-48); SODIUM 141 mmol/l (137-146); TOTAL PROTEIN 6.1 g/dL (6.3-8.2)
[2022-04-05] MEDS ORDERED: OMEPRAZOLE20 MG PO (16:42)
[2022-04-05] MEDS ORDERED: PHARBETOL500 MG PO (16:43)
[2022-04-06] VITALS (24 sets, daily range): BP systolic 93–146; BP diastolic 42–76
[2022-04-06 01:16] LABS: URINE BILIRUBIN - DIPSTICK NEGATIVE (NEGATIVE); URINE BLOOD DIPSTICK TRACE-INTACT (NEGATIVE); URINE COLOR YELLOW; URINE GLUCOSE - DIPSTICK 250 mg/dL (NEGATIVE); URINE KETONE NEGATIVE (NEGATIVE); URINE LEUK ESTERASE NEGATIVE (NEGATIVE); URINE NITRITE - DIPSTICK NEGATIVE (Negative); URINE PROTEIN - DIPSTICK NEGATIVE (NEG-TRACE); URINE SPECIFIC GRAVITY 1.025; URINE UROBILINOGEN - DIPSTICK 0.2 E.U./dL (0.2)
[2022-04-06 06:27] LABS: HEMATOCRIT 32.9 % (39.0-50.0); HEMOGLOBIN 10.9 g/dl (14.0-18.0); MEAN CELL VOLUME 93.7 fL CALC (80.0-100.0); MEAN CORPUSCULAR HGB 31.1 pG CALC (26.0-32.0); MEAN CORPUSCULAR HGB CONC 33.1 g/dL CAL (32.0-36.0); RED BLOOD COUNT 3.51 mill/uL (4.70-6.10)
[2022-04-06 06:39] LABS: ALKALINE PHOSPHATASE 51 u/l (38-126); ANION GAP 5 (6-22 (CALC)); BUN 14 mg/dL (8-23); BUN/CREATININE RATIO 19 (12-20 (CALC)); CARBON DIOXIDE 28 mmol/l (22-30); CHLORIDE 111 mmol/l (95-108); CREATININE 0.7 mg/dL (0.7-1.3); GFR FOR AFR.AMER. > 60 ML/MIN (>=60 (CALC)); GFR OTHER RACES > 60 ML/MIN (>=60 (CALC)); MAGNESIUM 1.9 mg/dL (1.6-2.3); POTASSIUM 3.2 mmol/l (3.5-5.1); SGOT/AST 25 u/l (19-48); SODIUM 141 mmol/l (137-146); TOTAL PROTEIN 5.2 g/dL (6.3-8.2)
[2022-04-06 06:45] LABS: ALBUMIN 2.7 g/dL (3.2-5.0)
[2022-04-07] VITALS (25 sets, daily range): BP systolic 106–160; BP diastolic 50–79
[2022-04-07 03:32] LABS: BASO% 0.1 % (0-3); HEMATOCRIT 31.9 % (39.0-50.0); HEMOGLOBIN 10.7 g/dl (14.0-18.0); IMMATURE GRANULOCYTES 0.1 % (0.0-5.0); LYMPH% 17.6 % (15-41); MEAN CELL VOLUME 91.9 fL CALC (80.0-100.0); MEAN CORPUSCULAR HGB 30.8 pG CALC (26.0-32.0); MEAN CORPUSCULAR HGB CONC 33.5 g/dL CAL (32.0-36.0); MONO% 5.8 % (2-13); NEUT# 5.36 thou/uL (1.82-7.42); NEUT% 76.4 % (42-76); RED BLOOD COUNT 3.47 mill/uL (4.70-6.10)
[2022-04-07 03:50] LABS: ALBUMIN 2.7 g/dL (3.2-5.0); ALKALINE PHOSPHATASE 52 u/l (38-126); ANION GAP 3 (6-22 (CALC)); BUN 11 mg/dL (8-23); BUN/CREATININE RATIO 16 (12-20 (CALC)); CARBON DIOXIDE 29 mmol/l (22-30); CHLORIDE 111 mmol/l (95-108); CREATININE 0.7 mg/dL (0.7-1.3); GFR FOR AFR.AMER. > 60 ML/MIN (>=60 (CALC)); GFR OTHER RACES > 60 ML/MIN (>=60 (CALC)); POTASSIUM 3.2 mmol/l (3.5-5.1); SGOT/AST 24 u/l (19-48); SODIUM 140 mmol/l (137-146); TOTAL PROTEIN 5.1 g/dL (6.3-8.2)
[2022-04-08] VITALS (136 sets, daily range): BP systolic 84–184; BP diastolic 42–115
[2022-04-08 05:52] LABS: BASO% 0.2 % (0-3); EOS% 0.8 % (0-8); HEMATOCRIT 33.4 % (39.0-50.0); IMMATURE GRANULOCYTES 0.2 % (0.0-5.0); LYMPH% 16.9 % (15-41); MEAN CELL VOLUME 92.5 fL CALC (80.0-100.0); MEAN CORPUSCULAR HGB 30.5 pG CALC (26.0-32.0); MEAN CORPUSCULAR HGB CONC 32.9 g/dL CAL (32.0-36.0); MONO% 6.5 % (2-13); NEUT# 4.73 thou/uL (1.82-7.42); NEUT% 75.4 % (42-76); RED BLOOD COUNT 3.61 mill/uL (4.70-6.10); RED CELL DISTRI WIDTH 13.9 % (11.5-15.5)
[2022-04-08 05:59] LABS: ALBUMIN 2.7 g/dL (3.2-5.0); ALKALINE PHOSPHATASE 58 u/l (38-126); ANION GAP 6 (6-22 (CALC)); BUN 7 mg/dL (8-23); BUN/CREATININE RATIO 10 (12-20 (CALC)); CARBON DIOXIDE 29 mmol/l (22-30); CHLORIDE 109 mmol/l (95-108); CREATININE 0.7 mg/dL (0.7-1.3); GFR FOR AFR.AMER. > 60 ML/MIN (>=60 (CALC)); GFR OTHER RACES > 60 ML/MIN (>=60 (CALC)); POTASSIUM 3.6 mmol/l (3.5-5.1); SGOT/AST 23 u/l (19-48); SODIUM 140 mmol/l (137-146); TOTAL PROTEIN 5.1 g/dL (6.3-8.2)
[2022-04-08 06:00] LABS: BILIRUBIN, TOTAL 0.2 mg/dL (0.0-1.4)
[2022-04-09] VITALS (65 sets, daily range): BP systolic 106–180; BP diastolic 46–102
[2022-04-09 05:30] LABS: BASO% 0.6 % (0-3); EOS% 3.3 % (0-8); HEMOGLOBIN 10.9 g/dl (14.0-18.0); MEAN CELL VOLUME 93.2 fL CALC (80.0-100.0); MEAN CORPUSCULAR HGB 30.8 pG CALC (26.0-32.0); MONO% 8.1 % (2-13); NEUT# 1.91 thou/uL (1.82-7.42); RED BLOOD COUNT 3.54 mill/uL (4.70-6.10); RED CELL DISTRI WIDTH 13.8 % (11.5-15.5)
[2022-04-09 05:40] LABS: ANION GAP 6 (6-22 (CALC)); BUN 9 mg/dL (8-23); BUN/CREATININE RATIO 13 (12-20 (CALC)); CARBON DIOXIDE 30 mmol/l (22-30); CHLORIDE 108 mmol/l (95-108); CREATININE 0.7 mg/dL (0.7-1.3); GFR FOR AFR.AMER. > 60 ML/MIN (>=60 (CALC)); GFR OTHER RACES > 60 ML/MIN (>=60 (CALC)); MAGNESIUM 2.2 mg/dL (1.6-2.3); POTASSIUM 3.4 mmol/l (3.5-5.1); SODIUM 140 mmol/l (137-146)
[2022-04-10] VITALS (7 sets, daily range): BP systolic 138–182; BP diastolic 67–87
[2022-04-10 05:07] LABS: BASO% 0.6 % (0-3); EOS% 2.7 % (0-8); HEMATOCRIT 33.2 % (39.0-50.0); HEMOGLOBIN 11.1 g/dl (14.0-18.0); IMMATURE GRANULOCYTES 0.2 % (0.0-5.0); MEAN CELL VOLUME 91.7 fL CALC (80.0-100.0); MEAN CORPUSCULAR HGB 30.7 pG CALC (26.0-32.0); MEAN CORPUSCULAR HGB CONC 33.4 g/dL CAL (32.0-36.0); MONO% 8.9 % (2-13); NEUT# 2.98 thou/uL (1.82-7.42); NEUT% 61.6 % (42-76); RED BLOOD COUNT 3.62 mill/uL (4.70-6.10); RED CELL DISTRI WIDTH 13.4 % (11.5-15.5)
[2022-04-10 05:18] LABS: ALBUMIN 2.7 g/dL (3.2-5.0); ALKALINE PHOSPHATASE 63 u/l (38-126); ANION GAP 5 (6-22 (CALC)); BUN 8 mg/dL (8-23); BUN/CREATININE RATIO 10 (12-20 (CALC)); CARBON DIOXIDE 33 mmol/l (22-30); CHLORIDE 104 mmol/l (95-108); CREATININE 0.7 mg/dL (0.7-1.3); GFR FOR AFR.AMER. > 60 ML/MIN (>=60 (CALC)); GFR OTHER RACES > 60 ML/MIN (>=60 (CALC)); POTASSIUM 3.4 mmol/l (3.5-5.1); SGOT/AST 20 u/l (19-48); SODIUM 139 mmol/l (137-146); TOTAL PROTEIN 4.9 g/dL (6.3-8.2)
[2022-04-11] VITALS (8 sets, daily range): BP systolic 121–178; BP diastolic 53–94
[2022-04-11 05:24] LABS: BASO% 0.4 % (0-3); EOS% 2.5 % (0-8); HEMATOCRIT 33.6 % (39.0-50.0); HEMOGLOBIN 11.1 g/dl (14.0-18.0); IMMATURE GRANULOCYTES 0.7 % (0.0-5.0); LYMPH% 17.4 % (15-41); MEAN CELL VOLUME 91.8 fL CALC (80.0-100.0); MEAN CORPUSCULAR HGB 30.3 pG CALC (26.0-32.0); MONO% 9.9 % (2-13); NEUT# 4.89 thou/uL (1.82-7.42); NEUT% 69.1 % (42-76); RED BLOOD COUNT 3.66 mill/uL (4.70-6.10); RED CELL DISTRI WIDTH 13.4 % (11.5-15.5)
[2022-04-11 05:50] LABS: ALBUMIN 2.7 g/dL (3.2-5.0); ALKALINE PHOSPHATASE 64 u/l (38-126); ANION GAP 4 (6-22 (CALC)); BUN 9 mg/dL (8-23); BUN/CREATININE RATIO 12 (12-20 (CALC)); CARBON DIOXIDE 35 mmol/l (22-30); CHLORIDE 106 mmol/l (95-108); CREATININE 0.8 mg/dL (0.7-1.3); GFR FOR AFR.AMER. > 60 ML/MIN (>=60 (CALC)); GFR OTHER RACES > 60 ML/MIN (>=60 (CALC)); POTASSIUM 3.5 mmol/l (3.5-5.1); SGOT/AST 21 u/l (19-48); SODIUM 141 mmol/l (137-146); TOTAL PROTEIN 5.1 g/dL (6.3-8.2)
[2022-04-11 08:32] LABS: URINE BILIRUBIN - DIPSTICK NEGATIVE (NEGATIVE); URINE BLOOD DIPSTICK SMALL (NEGATIVE); URINE CLARITY SL CLOUDY; URINE COLOR YELLOW; URINE GLUCOSE - DIPSTICK NEGATIVE (NEGATIVE); URINE KETONE NEGATIVE (NEGATIVE); URINE LEUK ESTERASE NEGATIVE (Negative); URINE NITRITE - DIPSTICK NEGATIVE (Negative); URINE PROTEIN - DIPSTICK NEGATIVE (NEG-TRACE); URINE SPECIFIC GRAVITY 1.025; URINE UROBILINOGEN - DIPSTICK 0.2 E.U./dL (0.2)
[2022-04-11 08:46] LABS: URINE EPITHELIAL CELLS FEW EPI/hpf (0-FEW)
[2022-04-12 03:56] VITALS: BP 114/60
[2022-04-12 05:53] LABS: HEMATOCRIT 32.6 % (39.0-50.0); HEMOGLOBIN 10.8 g/dl (14.0-18.0); MEAN CELL VOLUME 92.4 fL CALC (80.0-100.0); MEAN CORPUSCULAR HGB 30.6 pG CALC (26.0-32.0); MEAN CORPUSCULAR HGB CONC 33.1 g/dL CAL (32.0-36.0); RED BLOOD COUNT 3.53 mill/uL (4.70-6.10); RED CELL DISTRI WIDTH 13.4 % (11.5-15.5)
[2022-04-12 06:13] VITALS: BP 132/60
[2022-04-12 06:16] LABS: ANION GAP 5 (6-22 (CALC)); BUN 11 mg/dL (8-23); BUN/CREATININE RATIO 14 (12-20 (CALC)); CARBON DIOXIDE 32 mmol/l (22-30); CHLORIDE 107 mmol/l (95-108); CREATININE 0.8 mg/dL (0.7-1.3); GFR FOR AFR.AMER. > 60 ML/MIN (>=60 (CALC)); GFR OTHER RACES > 60 ML/MIN (>=60 (CALC)); POTASSIUM 3.4 mmol/l (3.5-5.1); SODIUM 140 mmol/l (137-146)
[2022-04-12] MEDS ORDERED: ATIVAN1 MG PO (08:20)
[2022-04-12 10:00] VITALS: BP 161/80
[2022-04-12 15:25] VITALS: BP 168/72
== END 2022-04-12 15:39 | DRG 871 ==
LOC: ED 10:36 → ED-I 13:50 → ED 14:08 → ICU 14:09 → MS2 04-07 00:03 → ICU 04-07 00:04 → MS2 04-09 19:40
PROVIDERS: Family Medicine; Internal Medicine; Nurse Practitioner Family; ADMIT Internal Medicine; ATTEND Internal Medicine
PROC: 02HV33Z Insertion of Infusion Device into Superior Vena Cava, Percutaneous Approach (ICD-10-PCS; principal; 2022-04-05)
PROC: 3E043XZ Introduction of Vasopressor into Central Vein, Percutaneous Approach (ICD-10-PCS; 2022-04-05)
PROC: 0T9B70Z Drainage of Bladder with Drainage Device, Via Natural or Artificial Opening (ICD-10-PCS; 2022-04-05)
PROC: 0HB1XZZ Excision of Face Skin, External Approach (ICD-10-PCS; 2022-04-10)
DX: A41.9 Sepsis, unspecified organism (principal); J10.00 Influenza due to other identified influenza virus with unspecified type of pneumonia; R65.21 Severe sepsis with septic shock; J96.01 Acute respiratory failure with hypoxia; I95.9 Hypotension, unspecified; I10 Essential (primary) hypertension; R00.0 Tachycardia, unspecified; L98.9 Disorder of the skin and subcutaneous tissue, unspecified; E78.00 Pure hypercholesterolemia, unspecified; N40.1 Benign prostatic hyperplasia with lower urinary tract symptoms; R33.8 Other retention of urine; K21.9 Gastro-esophageal reflux disease without esophagitis; F41.9 Anxiety disorder, unspecified; F32.A Depression, unspecified; E78.5 Hyperlipidemia, unspecified; K58.1 Irritable bowel syndrome with constipation; Z85.820 Personal history of malignant melanoma of skin; Z86.79 Personal history of other diseases of the circulatory system; Z91.81 History of falling; Z20.822 Contact with and (suspected) exposure to COVID-19
CPT/HCPCS: J1650; Q9967

== ENCOUNTER 2022-06-01 13:57 | Inpatient (IN) | payer MEDICARE ==
[~2022-06-01] VITALS: Ht 167.6 cm; Wt 63.0 kg
[2022-06-01] VITALS (40 sets, daily range): BP systolic 72–127; BP diastolic 34–69
[~2022-06-01 13:57] MED LIST changes: +PHARBETOL500 MG PO
[2022-06-01] MEDS ORDERED: WELLBUTRIN XL300 MG PO (14:21)
[2022-06-01] MEDS ORDERED: VITAMIN B-12500 MCG PO (14:31)
[2022-06-01] MEDS ORDERED: VITAMIN D325 MCG PO (14:32)
[2022-06-01] MEDS ORDERED: DOK100 MG PO (14:33)
[2022-06-01 15:01] LABS: BASO% 0.3 % (0-3); EOS% 0.9 % (0-8); HEMATOCRIT 38.7 % (39.0-50.0); HEMOGLOBIN 12.1 g/dl (14.0-18.0); IMMATURE GRANULOCYTES 0.2 % (0.0-5.0); LYMPH% 11.8 % (15-41); MEAN CELL VOLUME 92.6 fL CALC (80.0-100.0); MEAN CORPUSCULAR HGB 28.9 pG CALC (26.0-32.0); MEAN CORPUSCULAR HGB CONC 31.3 g/dL CAL (32.0-36.0); MONO% 9.9 % (2-13); NEUT# 4.88 thou/uL (1.82-7.42); NEUT% 76.9 % (42-76); RED BLOOD COUNT 4.18 mill/uL (4.70-6.10); RED CELL DISTRI WIDTH 13.4 % (11.5-15.5)
[2022-06-01 15:11] LABS: ALKALINE PHOSPHATASE 74 u/l (38-126); ANION GAP 9 (6-22 (CALC)); BUN 29 mg/dL (8-23); BUN/CREATININE RATIO 34 (12-20 (CALC)); CARBON DIOXIDE 28 mmol/l (22-30); CHLORIDE 106 mmol/l (95-108); CREATININE 0.9 mg/dL (0.7-1.3); GFR FOR AFR.AMER. > 60 ML/MIN (>=60 (CALC)); GFR OTHER RACES > 60 ML/MIN (>=60 (CALC)); LIPASE 75 u/l (23-300); POTASSIUM 3.2 mmol/l (3.5-5.1); SGOT/AST 30 u/l (19-48); SODIUM 139 mmol/l (137-146)
[2022-06-01 15:13] LABS: BILIRUBIN, TOTAL 0.2 mg/dL (0.2-1.3); TOTAL PROTEIN 6.5 g/dL (6.3-8.2)
[2022-06-01 15:14] LABS: ALBUMIN 3.8 g/dL (3.2-5.0)
[2022-06-02] VITALS (10 sets, daily range): BP systolic 112–177; BP diastolic 42–89
[2022-06-02 05:43] LABS: BASO% 0.2 % (0-3); EOS% 1.5 % (0-8); HEMATOCRIT 35.8 % (39.0-50.0); HEMOGLOBIN 11.2 g/dl (14.0-18.0); LYMPH% 4.7 % (15-41); MEAN CORPUSCULAR HGB 29.7 pG CALC (26.0-32.0); MEAN CORPUSCULAR HGB CONC 31.3 g/dL CAL (32.0-36.0); MONO% 5.5 % (2-13); NEUT# 5.77 thou/uL (1.82-7.42); NEUT% 88.1 % (42-76); RED BLOOD COUNT 3.77 mill/uL (4.70-6.10); RED CELL DISTRI WIDTH 13.5 % (11.5-15.5)
[2022-06-02 06:04] LABS: ALKALINE PHOSPHATASE 65 u/l (38-126); BUN 20 mg/dL (8-23); BUN/CREATININE RATIO 30 (12-20 (CALC)); C-REACTIVE PROTEIN 1.3 mg/dL (0-0.9); CHLORIDE 114 mmol/l (95-108); CREATININE 0.7 mg/dL (0.7-1.3); GFR FOR AFR.AMER. > 60 ML/MIN (>=60 (CALC)); GFR OTHER RACES > 60 ML/MIN (>=60 (CALC)); POTASSIUM 3.4 mmol/l (3.5-5.1); SGOT/AST 22 u/l (19-48); SODIUM 139 mmol/l (137-146); TOTAL PROTEIN 5.3 g/dL (6.3-8.2)
[2022-06-02 06:07] LABS: ANION GAP 6 (6-22 (CALC)); BILIRUBIN, TOTAL 0.1 mg/dL (0.2-1.3); CARBON DIOXIDE 22 mmol/l (22-30)
[2022-06-03] VITALS (12 sets, daily range): BP systolic 132–190; BP diastolic 58–97
[2022-06-03 05:34] LABS: BASO% 0.3 % (0-3); HEMATOCRIT 33.8 % (39.0-50.0); HEMOGLOBIN 10.8 g/dl (14.0-18.0); IMMATURE GRANULOCYTES 0.3 % (0.0-5.0); LYMPH% 7.7 % (15-41); MEAN CELL VOLUME 92.9 fL CALC (80.0-100.0); MEAN CORPUSCULAR HGB 29.7 pG CALC (26.0-32.0); MONO% 8.3 % (2-13); NEUT# 2.5 thou/uL (1.82-7.42); NEUT% 83.4 % (42-76); RED BLOOD COUNT 3.64 mill/uL (4.70-6.10); RED CELL DISTRI WIDTH 13.6 % (11.5-15.5)
[2022-06-03 06:03] LABS: ALBUMIN 2.7 g/dL (3.2-5.0); ALKALINE PHOSPHATASE 63 u/l (38-126); ANION GAP 6 (6-22 (CALC)); BUN 13 mg/dL (8-23); BUN/CREATININE RATIO 24 (12-20 (CALC)); CARBON DIOXIDE 24 mmol/l (22-30); CHLORIDE 113 mmol/l (95-108); CREATININE 0.6 mg/dL (0.7-1.3); GFR FOR AFR.AMER. > 60 ML/MIN (>=60 (CALC)); GFR OTHER RACES > 60 ML/MIN (>=60 (CALC)); POTASSIUM 3.7 mmol/l (3.5-5.1); SGOT/AST 17 u/l (19-48); SODIUM 139 mmol/l (137-146); TOTAL PROTEIN 4.8 g/dL (6.3-8.2)
[2022-06-04] VITALS (7 sets, daily range): BP systolic 129–172; BP diastolic 64–77
[2022-06-04 05:03] LABS: HEMATOCRIT 33.8 % (39.0-50.0); HEMOGLOBIN 10.9 g/dl (14.0-18.0); MEAN CELL VOLUME 92.1 fL CALC (80.0-100.0); MEAN CORPUSCULAR HGB 29.7 pG CALC (26.0-32.0); MEAN CORPUSCULAR HGB CONC 32.2 g/dL CAL (32.0-36.0); RED BLOOD COUNT 3.67 mill/uL (4.70-6.10); RED CELL DISTRI WIDTH 13.5 % (11.5-15.5)
[2022-06-04 05:28] LABS: ALBUMIN 2.8 g/dL (3.2-5.0); ALKALINE PHOSPHATASE 58 u/l (38-126); BUN 9 mg/dL (8-23); BUN/CREATININE RATIO 14 (12-20 (CALC)); CHLORIDE 108 mmol/l (95-108); CREATININE 0.6 mg/dL (0.7-1.3); GFR FOR AFR.AMER. > 60 ML/MIN (>=60 (CALC)); GFR OTHER RACES > 60 ML/MIN (>=60 (CALC)); MAGNESIUM 1.7 mg/dL (1.6-2.3); POTASSIUM 3.5 mmol/l (3.5-5.1); SGOT/AST 18 u/l (19-48); SODIUM 140 mmol/l (137-146); TOTAL PROTEIN 4.9 g/dL (6.3-8.2)
[2022-06-04 05:33] LABS: ANION GAP 6 (6-22 (CALC)); CARBON DIOXIDE 30 mmol/l (22-30)
[2022-06-04 14:01] LABS: URINE BILIRUBIN - DIPSTICK NEGATIVE (NEGATIVE); URINE BLOOD DIPSTICK NEGATIVE (NEGATIVE); URINE COLOR YELLOW; URINE GLUCOSE - DIPSTICK NEGATIVE (NEGATIVE); URINE KETONE NEGATIVE (NEGATIVE); URINE LEUK ESTERASE NEGATIVE (NEGATIVE); URINE PROTEIN - DIPSTICK NEGATIVE (NEG-TRACE); URINE UROBILINOGEN - DIPSTICK 0.2 E.U./dL (0.2)
[2022-06-04 14:45] LABS: URINE NITRITE - DIPSTICK NEGATIVE (Negative)
[2022-06-05] VITALS (7 sets, daily range): BP systolic 104–165; BP diastolic 57–93
[2022-06-06] VITALS: BP 111/60
[2022-06-06 06:06] VITALS: BP 186/89
[2022-06-06 10:14] VITALS: BP 125/68
[2022-06-06] MEDS ORDERED: VERAPAMIL180 M5 PO (10:33)
[2022-06-06] MEDS ORDERED: COREG12.5 MG PO (10:33)
[2022-06-06] MEDS ORDERED: VIBRAMYCIN100 M2 PO (10:33)
[2022-06-06] MEDS ORDERED: DEXAMETHASON6 MG PO (10:33)
== END 2022-06-06 14:42 | DRG 177 ==
LOC: ED 13:57 → ED-I 16:30 → ED 16:30 → MS2 17:33
PROVIDERS: Nurse Practitioner; Nurse Practitioner Family; ADMIT Internal Medicine; ATTEND Internal Medicine
DX: U07.1 COVID-19 (principal); J12.82 Pneumonia due to coronavirus disease 2019; J96.11 Chronic respiratory failure with hypoxia; I95.1 Orthostatic hypotension; R00.1 Bradycardia, unspecified; I10 Essential (primary) hypertension; E78.00 Pure hypercholesterolemia, unspecified; K21.9 Gastro-esophageal reflux disease without esophagitis; F41.9 Anxiety disorder, unspecified; F32.A Depression, unspecified; K58.9 Irritable bowel syndrome, unspecified; K59.09 Other constipation; Z86.79 Personal history of other diseases of the circulatory system; Z85.820 Personal history of malignant melanoma of skin
CPT/HCPCS: J1650